=== PATIENT | female | born 1955 | race Caucasian/White ===

== ENCOUNTER 2019-12-27 23:57 | Inpatient (IN) | payer MEDICAID, OTHER ==
[~2019-12-27] VITALS: Ht 165.1 cm; Wt 97.8 kg
[2019-12-28 01:07] LABS: Basophils # (auto) 0 10 ^3/uL (0-0.2); Basophils % (auto) 0.4 % (0.0-2.0); Eosinophils # (auto) 0.2 10 ^3/uL (0-0.8); Eosinophils % (auto) 3.5 % (0.0-7.0); Hematocrit 43.4 % (36.0-46.0); Hemoglobin 14.9 g/dL (12.2-16.2); Lymphocytes # (auto) 0.7 10 ^3/uL (0.4-5.4); Lymphocytes % (auto) 11.8 % (10.0-50.0); Mean Corpuscular Hemoglobin 33.1 pg (28.0-32.0); Mean Corpuscular Hgb Conc. 34.3 g/dL (32.0-36.0); Mean Corpuscular Volume 96.4 fL (80.0-100.0); Monocytes # (auto) 0.8 10 ^3/uL (0-1.3); Monocytes % (auto) 12.5 % (0.0-12.0); Neutrophils # (auto) 4.5 10 ^3/uL (1.6-8.6); Neutrophils % (auto) 71.8 % (37.0-80.0); Nucleated Red Blood Cells % 0.2 %; Platelet Count (auto) 149 10^3/uL (140-450); Red Blood Cells 4.51 10^6/uL (4.0-5.20); Red Cell Distribution Width 13.1 % (11.8-14.3); White Blood Cell 6.3 10^3/uL (4.4-10.8)
[2019-12-28] MEDS ORDERED: IPRATROPIUM BROM 0.5 MG/2.5ML INH SOL HHN ONE (01:15)
[2019-12-28] MEDS ORDERED: ALBUTEROL SULF 2.5 MG/0.5ML(0.5%) NEB SOLN HHN ONE (01:15)
[2019-12-28] MEDS ORDERED: methylPREDNISolone SOD SUCC 125 MG/2 ML VL IV ONE (01:15)
[2019-12-28 01:21] LABS: INR 1.01 (0.9-1.15); Partial Thromboplastin Time 28.7 sec (23.64-32.05)
[2019-12-28 01:25] LABS: Alanine Aminotransferase 31 U/L (13-56); Albumin 3.7 g/dL (3.4-5.0); Anion Gap 4 (5-15); Aspartate Aminotransferase 16 U/L (15-37); BUN/Creatinine Ratio 32.9; Blood Urea Nitrogen 28 mg/dL (7-18); Calcium 8.6 mg/dL (8.5-10.1); Carbon Dioxide 30 mmol/L (21-32); Chloride 105 mmol/L (98-107); GFR African American 87 mL/min; GFR Non-African American 72 mL/min; Glucose 121 mg/dL (74-106); Magnesium 2.2 mg/dL (1.6-2.6); Potassium 4.2 mmol/L (3.5-5.1); Sodium 139 mmol/L (136-145)
[2019-12-28 01:30] LABS: Alkaline Phosphatase 65 U/L (45-117); Bilirubin, Total 0.4 mg/dL (0.2-1.0); Total Protein 7.2 g/dL (6.4-8.2)
[2019-12-28] MEDS ORDERED: DEXTROSE (50%) 50ML SYRG IV PRN (04:15)
[2019-12-28] MEDS ORDERED: ACETAMINOPHEN 325 MG TAB PO PRN (04:45)
[2019-12-28] MEDS ORDERED: DOCUSATE SOD 100 MG CAP PO PRN (04:45)
[2019-12-28] MEDS: IPRATROPIUM BROM 0.5 MG/2.5ML INH SOL NEB SCH ×5 (05:27→21:40)
[2019-12-28] MEDS: ALBUTEROL SULF 2.5 MG/0.5ML(0.5%) NEB SOLN NEB SCH ×5 (05:27→21:40)
--- NOTE | 2019-12-28 05:27 | NUR ---
Respiratory note: PRN BREATHING TX GIVEN AT THIS TIME. PT IS CURRENTLY WEARING 3 L NASAL CANNULA. HR 73, RR 17, SP02 96% AND BREATH SOUNDS ARE CLEAR AND DIMINISHED. PT IS AWARE TO HAVE RT PAGED IF BREATHING TX IS NEEDED. WILL CONTINUE TO MONITOR PT.
[2019-12-28 05:51] LABS: Urine Bacteria FEW /hpf (None Seen); Urine Blood Negative /uL (Negative); Urine Hyaline Cast FEW /lpf (0 - 2); Urine Specific Gravity 1.025 (1.001-1.035)
[2019-12-28 05:54] LABS: Urine WBC 5 /hpf (0 - 5)
[2019-12-28 06:18] VITALS: BP 116/60
[2019-12-28 07:11] LABS: Basophils # (auto) 0 10 ^3/uL (0-0.2); Basophils % (auto) 0.2 % (0.0-2.0); Eosinophils # (auto) 0 10 ^3/uL (0-0.8); Eosinophils % (auto) 0.2 % (0.0-7.0); Hematocrit 43.9 % (36.0-46.0); Hemoglobin 14.9 g/dL (12.2-16.2); Lymphocytes # (auto) 0.3 10 ^3/uL (0.4-5.4); Lymphocytes % (auto) 5.8 % (10.0-50.0); Mean Corpuscular Hemoglobin 32.7 pg (28.0-32.0); Mean Corpuscular Hgb Conc. 33.9 g/dL (32.0-36.0); Mean Corpuscular Volume 96.3 fL (80.0-100.0); Monocytes # (auto) 0.2 10 ^3/uL (0-1.3); Monocytes % (auto) 2.6 % (0.0-12.0); Neutrophils # (auto) 5.2 10 ^3/uL (1.6-8.6); Neutrophils % (auto) 91.2 % (37.0-80.0); Platelet Count (auto) 144 10^3/uL (140-450); Red Blood Cells 4.55 10^6/uL (4.0-5.20); Red Cell Distribution Width 13.1 % (11.8-14.3); White Blood Cell 5.7 10^3/uL (4.4-10.8)
[2019-12-28 07:29] LABS: BUN/Creatinine Ratio 33.3; Calcium 8.8 mg/dL (8.5-10.1); Potassium 4.3 mmol/L (3.5-5.1)
[2019-12-28] MEDS: ACCU-CHEK COMFORT CURVE STRIP VI SCH ×5 (08:00→23:49)
[2019-12-28] MEDS: InsuLIN REG 1unit/0.01ml Soln (100units/ml) SC SCH ×5 (08:23→23:50)
--- NOTE | 2019-12-28 09:12 | NUR ---
MS admit from ER RYANNE CHAVEZ admitted to tele/MS after SBAR received. Patient oriented to Gerda parsons RN, unit, room, bed, and unit policies regarding patient care and visiting hours. Patient weighed by bedscale and encouraged to call if they need something. All questions and concerns addressed, patient verbalized understanding.
[2019-12-28] MEDS: cefTRIAXone 1GM/50ML D5W 50 ML IV SCH (09:55)
[2019-12-28] MEDS: CLOPIDOGREL BISULFATE 75 MG TAB PO SCH (09:55)
[2019-12-28] MEDS: AZITHROMYCIN 500MG/ 250ML 250 ML IV SCH (09:55)
[2019-12-28] MEDS: METOPROLOL TARTRATE 25 MG TAB PO SCH ×2 (09:56→22:20)
[2019-12-28] MEDS: ATORVASTATIN 20 MG TAB PO SCH (09:56)
[2019-12-28] MEDS: FUROSEMIDE 40 MG TAB PO SCH (09:56)
[2019-12-28] MEDS: methylPREDNISolone SOD SUCC 125 MG/2 ML VL IV SCH (09:56)
[2019-12-28] MEDS: ASPirin 81 mg TAB PO SCH (09:56)
--- NOTE | 2019-12-28 10:10 | NUR ---
AT BEDSIDE DR YANG AT BEDSIDE UPDATING PATIENT ON POC. PATIENT VERBALIZED UNDERSTANDING.
[2019-12-28] MEDS: HYDROcodone-ACET 5/325MG TAB PO PRN ×3 (11:07→21:10)
[2019-12-28 12:07] VITALS: BP 159/85
[2019-12-28] MEDS ORDERED: BENA20TA14 PO (12:37)
[2019-12-28] MEDS ORDERED: CARV25TA PO (12:37)
[2019-12-28] MEDS ORDERED: DOCU-94 PO (12:37)
[2019-12-28] MEDS ORDERED: FURO1TAB31 PO (12:37)
[2019-12-28] MEDS ORDERED: ALBU108A5 IN (12:37)
[2019-12-28] MEDS ORDERED: POTA10TA51 PO (12:37)
[2019-12-28] MEDS ORDERED: FLUT1INH6 IN (12:37)
[2019-12-28] MEDS ORDERED: HYDR-4833 PO (12:37)
[2019-12-28 13:00] VITALS: BP 124/73
[2019-12-28 16:55] VITALS: BP 147/77
--- NOTE | 2019-12-28 19:20 | NUR ---
Opening Shift Note Assumed care of patient, awake, alert and oriented x4, even and unlabored respirations, no S/S of distress/SOB or pain. Patient on oxygen 3L via NC, patient able to turn independently. Bed in lowest locked position, side rails up x2, and call light within reach. Instructed on POC and to call for assist PRN, will continue to monitor for changes Q1hr and PRN.
[2019-12-28 22:00] VITALS: BP 145/77
[2019-12-29] MEDS ORDERED: TEMAZEPAM 15 MG CAP PO ONE (00:45)
[2019-12-29] MEDS: MORPHINE SULFATE 4 MG/ML SYR/VIAL IV PRN ×3 (00:51→22:23)
[2019-12-29] MEDS: ONDANSETRON HCL 4 MG/2 ML VIAL IV PRN ×3 (00:52→22:23)
[2019-12-29] MEDS: IPRATROPIUM BROM 0.5 MG/2.5ML INH SOL NEB SCH ×5 (02:17→22:57)
[2019-12-29] MEDS: ALBUTEROL SULF 2.5 MG/0.5ML(0.5%) NEB SOLN NEB SCH ×5 (02:17→22:57)
[2019-12-29] MEDS: InsuLIN REG 1unit/0.01ml Soln (100units/ml) SC SCH ×6 (04:25→23:32)
[2019-12-29] MEDS: ACCU-CHEK COMFORT CURVE STRIP VI SCH ×6 (04:51→23:31)
[2019-12-29 05:00] VITALS: BP 129/73
[2019-12-29 05:42] LABS: Basophils # (auto) 0 10 ^3/uL (0-0.2); Basophils % (auto) 0.1 % (0.0-2.0); Eosinophils # (auto) 0 10 ^3/uL (0-0.8); Hematocrit 42.1 % (36.0-46.0); Hemoglobin 14.4 g/dL (12.2-16.2); Lymphocytes # (auto) 0.5 10 ^3/uL (0.4-5.4); Lymphocytes % (auto) 5.1 % (10.0-50.0); Mean Corpuscular Hemoglobin 32.6 pg (28.0-32.0); Mean Corpuscular Hgb Conc. 34.3 g/dL (32.0-36.0); Mean Corpuscular Volume 95.1 fL (80.0-100.0); Monocytes # (auto) 1.1 10 ^3/uL (0-1.3); Monocytes % (auto) 10.8 % (0.0-12.0); Neutrophils # (auto) 8.8 10 ^3/uL (1.6-8.6); Nucleated Red Blood Cells % 0.1 %; Platelet Count (auto) 164 10^3/uL (140-450); Red Blood Cells 4.43 10^6/uL (4.0-5.20); Red Cell Distribution Width 12.8 % (11.8-14.3); White Blood Cell 10.5 10^3/uL (4.4-10.8)
[2019-12-29 06:00] LABS: Potassium 4.4 mmol/L (3.5-5.1)
[2019-12-29 06:06] LABS: Albumin 3.6 g/dL (3.4-5.0); BUN/Creatinine Ratio 27.8; Bilirubin, Total 0.3 mg/dL (0.2-1.0); Calcium 8.9 mg/dL (8.5-10.1); Total Protein 6.9 g/dL (6.4-8.2)
--- NOTE | 2019-12-29 08:00 | NUR ---
OPENING SHIFT NOTE ASSUMED CARE OF PATIENT AWAKE AND ALERT. NO S/S OF DISTRESS NOTED OR COMPLAINTS OF PAIN. PATIENT UPDATED ON POC FOR THE DAY AND ALL QUESTIONS ANSWERED. BED IS IN LOWEST, LOCKED POSITION WITH SIDE RAILS UP X2 AND CALL LIGHT WITHIN REACH. WILL CONTINUE TO MONITOR Q1H AND PRN.
[2019-12-29 09:00] VITALS: BP 137/83
[2019-12-29] MEDS: methylPREDNISolone SOD SUCC 125 MG/2 ML VL IV SCH (09:29)
[2019-12-29] MEDS: cefTRIAXone 1GM/50ML D5W 50 ML IV SCH (09:29)
[2019-12-29] MEDS: AZITHROMYCIN 500MG/ 250ML 250 ML IV SCH (09:29)
[2019-12-29] MEDS: FUROSEMIDE 40 MG TAB PO SCH (09:30)
[2019-12-29] MEDS: ASPirin 81 mg TAB PO SCH (09:30)
[2019-12-29] MEDS: HYDROcodone-ACET 5/325MG TAB PO PRN ×3 (09:30→18:23)
[2019-12-29] MEDS: ATORVASTATIN 20 MG TAB PO SCH (09:30)
[2019-12-29] MEDS: CLOPIDOGREL BISULFATE 75 MG TAB PO SCH (09:30)
[2019-12-29] MEDS: METOPROLOL TARTRATE 25 MG TAB PO SCH ×2 (09:30→21:49)
--- NOTE | 2019-12-29 10:00 | NUR ---
AT BEDSIDE DR YANG AT BEDSIDE UPDATING PATIENT ON POC. PATIENT VERBALIZED UNDERSTANDING.
[2019-12-29] MEDS ORDERED: methylPREDNISolone SOD SUCC 40 MG/ML VL IV ONE (10:15)
[2019-12-29 12:52] VITALS: BP 126/67
[2019-12-29] MEDS: THROAT LOZENGES(CEPASTAT) MT PRN ×2 (13:55→21:49)
[2019-12-29 16:56] VITALS: BP 131/71
[2019-12-29 22:00] VITALS: BP 132/70
[2019-12-30] MEDS: MORPHINE SULFATE 4 MG/ML SYR/VIAL IV PRN ×2 (02:04→09:59)
[2019-12-30] MEDS: ACCU-CHEK COMFORT CURVE STRIP VI SCH ×6 (03:35→23:51)
[2019-12-30] MEDS: InsuLIN REG 1unit/0.01ml Soln (100units/ml) SC SCH ×6 (03:35→23:51)
[2019-12-30] MEDS: HYDROcodone-ACET 5/325MG TAB PO PRN ×4 (06:01→23:40)
--- NOTE | 2019-12-30 06:05 | NUR ---
rt paged for breathing treatment
[2019-12-30] MEDS: IPRATROPIUM BROM 0.5 MG/2.5ML INH SOL NEB SCH ×6 (06:34→20:30)
[2019-12-30] MEDS: ALBUTEROL SULF 2.5 MG/0.5ML(0.5%) NEB SOLN NEB SCH ×6 (06:34→20:30)
--- NOTE | 2019-12-30 07:47 | NUR ---
RECEIVED PATIENT ALERT AND ORIENTED X4, NOT IN DISTRESS, WHEEZING SOUNDS IN BILATERAL LUNG LOBES, RR=20, DEEP BREATHING AND COUGHING ENCOURAGED, DEMONSTRATED WELL, NORMAL HEART BEAT AND RHYTHM, R=88, DENIED CHEST PAIN AND SOB, ABDOMEN SOFT WITH ACTIVE BS, LAST BM=12/26/19 REPORTED, SKIN INTACT WARM TO TOUCH, RADIAL AND PEDAL PULSES PALPABLE, CAP REFILL <3 SECONDS, RESTING ON BED, HEAD OF BED ELEVATED, BED ON LOW POSITION, RAILS UP X2, CALL LIGHT ON REACH, WILL CONTINUE MONITORING.
[2019-12-30 09:00] VITALS: BP 132/70
[2019-12-30] MEDS: cefTRIAXone 1GM/50ML D5W 50 ML IV SCH (09:54)
[2019-12-30] MEDS: methylPREDNISolone SOD SUCC 40 MG/ML VL IV SCH (09:55)
[2019-12-30] MEDS: AZITHROMYCIN 500MG/ 250ML 250 ML IV SCH (09:55)
[2019-12-30] MEDS: ASPirin 81 mg TAB PO SCH (09:56)
[2019-12-30] MEDS: FUROSEMIDE 40 MG TAB PO SCH (09:57)
[2019-12-30] MEDS: METOPROLOL TARTRATE 25 MG TAB PO SCH ×2 (09:58→23:37)
[2019-12-30] MEDS: CLOPIDOGREL BISULFATE 75 MG TAB PO SCH (09:58)
[2019-12-30] MEDS: ATORVASTATIN 20 MG TAB PO SCH (09:58)
[2019-12-30] MEDS: ONDANSETRON HCL 4 MG/2 ML VIAL IV PRN (09:59)
[2019-12-30] MEDS ORDERED: diphenhdrAMINE HCL 25 MG CAP PO PRN (10:15)
[2019-12-30] MEDS ORDERED: LACTULOSE 20Gm/30ML SOLN PO ONE (10:45)
[2019-12-30 13:00] VITALS: BP 116/70
--- NOTE | 2019-12-30 13:00 | NUR ---
C/O CONSTIPATION, DR. YANG WAS NOTIFIED, WATER ENEMA AND LACTULOSE PO WAS ORDERED, REFUSED ENEMA, LACTULOSE PO WAS ADMINISTERED REQUESTED, ENCOURAGED TO AMBULATE AROUND THE UNIT, VERBALIZED UNDERSTANDING, RESTING ON BED AT THIS MOMENT.
[2019-12-30 17:00] VITALS: BP 124/69
--- NOTE | 2019-12-30 18:38 | NUR ---
AMBULATED AROUND THE UNIT X4, TOLERATED WELL, NO BM NOTED, SITTING AND EATING DINNER AT THIS MOMENT, WILL CONTINUE MONITORING.
--- NOTE | 2019-12-30 18:59 | NUR ---
Respiratory note: PT REFUSED SCHED MED NEB TX AT THIS TIME. PT SAYS SHE JUST ATE AND THAT THE MED NEB TX GIVES HER STOMACH ACHES. PT IS CURRENTLY ON 3 L/M NC: HR 75, RR 18, SPO2 92%. PT SHOWS NO S/S OF SOB OR RESPIRATORY DISTRESS. WILL CONTINUE TO MONITOR.
--- NOTE | 2019-12-30 19:10 | NUR ---
Patient refused water enema and states that she had 2 small bowel movements and wants to wait for a few hours. Patient states that she will just let me know when she is ready. Addendum: 12/31/19 at 0559 by PATTIE STAUFFER RN RN time is 0430
--- NOTE | 2019-12-30 19:24 | NUR ---
RESTING ON BED, NOT IN DISTRESS, HEAD OF BED ELEVATED, BED ON LOW POSITION, RAILS UP X2, CALL LIGHT ON REACH, REPORT WAS GIVEN TO THE CISCO ADMINISTRATOR RN.
--- NOTE | 2019-12-30 19:30 | NUR ---
Opening Shift Note Received report from isai Drummond RN. Assumed care of patient, awake and alert. No S/S of distress/SOB or pain. Instructed on POC and to call for assist PRN, will continue to monitor for changes Q1hr and PRN. Bed placed in lowest position, and call light within reach.
[2019-12-30 22:00] VITALS: BP 120/71
--- NOTE | 2019-12-31 00:30 | NUR ---
IV removal IV to left forearm infiltrated. DC'd with sterile technique, catheter fully intact. Pressure dressing applied to site. Patient tolerated procedure well.
--- NOTE | 2019-12-31 00:30 | NUR ---
IV insertion IV access obtained, via clean sterile technique by inserting 22 gauge catheter at left forearm after first attempt. IV secured properly. No trauma to site. Patient tolerated procedure well.
[2019-12-31] MEDS: ALBUTEROL SULF 2.5 MG/0.5ML(0.5%) NEB SOLN NEB SCH ×5 (02:42→18:02)
[2019-12-31] MEDS: IPRATROPIUM BROM 0.5 MG/2.5ML INH SOL NEB SCH ×5 (02:42→18:02)
[2019-12-31] MEDS: InsuLIN REG 1unit/0.01ml Soln (100units/ml) SC SCH ×5 (04:00→20:00)
[2019-12-31] MEDS: ACCU-CHEK COMFORT CURVE STRIP VI SCH ×4 (04:26→16:00)
[2019-12-31] MEDS: HYDROcodone-ACET 5/325MG TAB PO PRN ×5 (04:29→23:51)
[2019-12-31 05:00] VITALS: BP 131/79
[2019-12-31 06:07] LABS: Basophils # (auto) 0 10 ^3/uL (0-0.2); Basophils % (auto) 0.1 % (0.0-2.0); Eosinophils # (auto) 0 10 ^3/uL (0-0.8); Eosinophils % (auto) 0.5 % (0.0-7.0); Hematocrit 41.3 % (36.0-46.0); Lymphocytes # (auto) 1.5 10 ^3/uL (0.4-5.4); Lymphocytes % (auto) 20.4 % (10.0-50.0); Mean Corpuscular Hemoglobin 32.2 pg (28.0-32.0); Mean Corpuscular Hgb Conc. 33.9 g/dL (32.0-36.0); Mean Corpuscular Volume 95.1 fL (80.0-100.0); Monocytes # (auto) 0.9 10 ^3/uL (0-1.3); Monocytes % (auto) 12.8 % (0.0-12.0); Neutrophils # (auto) 4.8 10 ^3/uL (1.6-8.6); Neutrophils % (auto) 66.2 % (37.0-80.0); Nucleated Red Blood Cells % 0.1 %; Platelet Count (auto) 159 10^3/uL (140-450); Red Blood Cells 4.35 10^6/uL (4.0-5.20); White Blood Cell 7.3 10^3/uL (4.4-10.8)
[2019-12-31 06:13] LABS: Albumin 3.4 g/dL (3.4-5.0); Calcium 8.4 mg/dL (8.5-10.1); Potassium 3.6 mmol/L (3.5-5.1)
[2019-12-31 06:38] LABS: Bilirubin, Total 0.3 mg/dL (0.2-1.0); Total Protein 6.4 g/dL (6.4-8.2)
--- NOTE | 2019-12-31 08:00 | NUR ---
RECEIVED PATIENT ALERT AND ORIENTED X4, NOT IN DISTRESS, WHEEZING SOUNDS IN BILATERAL LUNG LOBES, RR=18, DEEP BREATHING AND COUGHING ENCOURAGED, DEMONSTRATED WELL, NORMAL HEART BEAT AND RHYTHM, R=88, DENIED CHEST PAIN AND SOB, ABDOMEN SOFT WITH ACTIVE BS, LAST BM=THIS MORNING REPORTED, SKIN INTACT WARM TO TOUCH, RADIAL AND PEDAL PULSES PALPABLE, CAP REFILL <3 SECONDS, RESTING ON BED, HEAD OF BED ELEVATED, BED ON LOW POSITION, RAILS UP X2, CALL LIGHT ON REACH, WILL CONTINUE MONITORING.
[2019-12-31] MEDS: MORPHINE SULFATE 4 MG/ML SYR/VIAL IV PRN (08:35)
[2019-12-31] MEDS: ONDANSETRON HCL 4 MG/2 ML VIAL IV PRN (08:35)
[2019-12-31 09:00] VITALS: BP 113/62
[2019-12-31] MEDS: cefTRIAXone 1GM/50ML D5W 50 ML IV SCH (10:48)
[2019-12-31] MEDS: ASPirin 81 mg TAB PO SCH (10:49)
[2019-12-31] MEDS: methylPREDNISolone SOD SUCC 40 MG/ML VL IV SCH (10:49)
[2019-12-31] MEDS: AZITHROMYCIN 500MG/ 250ML 250 ML IV SCH (10:49)
[2019-12-31] MEDS: ATORVASTATIN 20 MG TAB PO SCH (10:50)
[2019-12-31] MEDS: FUROSEMIDE 40 MG TAB PO SCH (10:50)
[2019-12-31] MEDS: METOPROLOL TARTRATE 25 MG TAB PO SCH ×2 (10:51→16:00)
[2019-12-31] MEDS: CLOPIDOGREL BISULFATE 75 MG TAB PO SCH (10:51)
--- NOTE | 2019-12-31 11:00 | NUR ---
OUT OF BED AMBULATED AROUND THE UNIT AND BACK TO THE ROOM, D/C INFILTRATED LT. ARM IV SITE, INSERTED NEW SITE G 20 ON LT. LOWER ARM, TOLERATED WELL, WILL CONTINUE MONITORING.
--- NOTE | 2019-12-31 11:29 | NUR ---
NUTRITION ASSESSMENT NOTES Please refer to link notes of nutrition screen form filed under the intervention section of the plan of care for further details. Est. Energy Needs: 4451-4568 kcal (14-18 kcal/kg BW). Est. Protein Needs: 54-67 gms/day (0.8-1.0 gms/kg Adj.BW). Will continue to monitor pertinent labs and reassess nutrient need prn Addendum: 12/31/19 at [address] Amended: Links added.
--- NOTE | 2019-12-31 12:29 | NUR ---
RT NOTE: THERAPIST WAS UNAVAILABLE TO GIVE 1000 TX DUE TO BEING STUCK IN ICU WITH MULTIPLE CRITICAL PTS WITH MD ORDERS TO BE CARRIED OUT. WILL ATTEMPT TO MAKE IT TO NEXT SCHEDULED TX.
[2019-12-31 13:00] VITALS: BP_SYST 129; BP_SYST 92; BP_DIAS 48; BP_DIAS 72
[2019-12-31 17:12] VITALS: BP 137/86
--- NOTE | 2019-12-31 19:19 | NUR ---
RESTING ON BED, NOT IN DISTRESS, HEAD OF BED ELEVATED, BED ON LOW POSITION, RAILS UP X2, CALL LIGHT ON REACH, REPORT WAS GIVEN TO THE PARCEL POST CLERK RN.
[2019-12-31 22:00] VITALS: BP_SYST 106; BP_SYST 143; BP_DIAS 60; BP_DIAS 81
[2019-12-31 23:24] VITALS: BP 143/81
--- NOTE | 2020-01-01 00:15 | NUR ---
PT REQUESTING TO BE SUCTIONED D/T UNABLE TO CLEAR THICK MUCUS FROM NASAL PASSAGES. NTS PERFORMED, PT TOLERATED WELL. SAFETY PRECAUTIONS IN PLACE. WILL CONTINUE TO MONITOR.
[2020-01-01] MEDS: ALBUTEROL SULF 2.5 MG/0.5ML(0.5%) NEB SOLN NEB SCH ×6 (00:44→22:40)
[2020-01-01] MEDS: IPRATROPIUM BROM 0.5 MG/2.5ML INH SOL NEB SCH ×6 (00:45→22:40)
[2020-01-01 01:49] VITALS: BP 133/82
[2020-01-01] MEDS: ONDANSETRON HCL 4 MG/2 ML VIAL IV PRN ×4 (02:52→20:04)
[2020-01-01] MEDS: MORPHINE SULFATE 4 MG/ML SYR/VIAL IV PRN ×4 (02:52→20:04)
[2020-01-01] MEDS: ACCU-CHEK COMFORT CURVE STRIP VI SCH ×7 (03:01→20:04)
--- NOTE | 2020-01-01 03:47 | NUR ---
PT REFUSED VITAL SIGNS, PT YELLING AT DE ALCOHOLIZER, RYANNE, TELLING HER TO GET OUT OF THE ROOM AND TO LEAVE HER ALONE.
[2020-01-01] MEDS: InsuLIN REG 1unit/0.01ml Soln (100units/ml) SC SCH ×6 (04:00→20:00)
--- NOTE | 2020-01-01 07:00 | NUR ---
LT AC IV INFILTRATED, NEW IV ON LT FA 22G PLACED, PT TOLERATED WELL, IV INTACT AND PATENT. SAFETY PRECAUTIONS IN PLACE. WILL CONTINUE TO MONITOR.
[2020-01-01 09:00] VITALS: BP 130/66
[2020-01-01 10:03] LABS: Basophils # (auto) 0 10 ^3/uL (0-0.2); Basophils % (auto) 0.1 % (0.0-2.0); Eosinophils # (auto) 0.1 10 ^3/uL (0-0.8); Eosinophils % (auto) 1.3 % (0.0-7.0); Hemoglobin 14.4 g/dL (12.2-16.2); Lymphocytes % (auto) 25.4 % (10.0-50.0); Mean Corpuscular Hemoglobin 32.2 pg (28.0-32.0); Mean Corpuscular Hgb Conc. 34.2 g/dL (32.0-36.0); Mean Corpuscular Volume 94.3 fL (80.0-100.0); Monocytes # (auto) 0.9 10 ^3/uL (0-1.3); Neutrophils # (auto) 4.8 10 ^3/uL (1.6-8.6); Neutrophils % (auto) 61.2 % (37.0-80.0); Nucleated Red Blood Cells % 0.1 %; Platelet Count (auto) 181 10^3/uL (140-450); Red Blood Cells 4.45 10^6/uL (4.0-5.20); Red Cell Distribution Width 12.7 % (11.8-14.3); White Blood Cell 7.9 10^3/uL (4.4-10.8)
[2020-01-01 10:22] LABS: BUN/Creatinine Ratio 27.3; Calcium 8.6 mg/dL (8.5-10.1); Potassium 3.7 mmol/L (3.5-5.1)
[2020-01-01] MEDS: cefTRIAXone 1GM/50ML D5W 50 ML IV SCH (10:30)
[2020-01-01] MEDS: FUROSEMIDE 40 MG TAB PO SCH (10:31)
[2020-01-01] MEDS: methylPREDNISolone SOD SUCC 40 MG/ML VL IV SCH (10:31)
[2020-01-01] MEDS: ATORVASTATIN 20 MG TAB PO SCH (10:31)
[2020-01-01] MEDS: ASPirin 81 mg TAB PO SCH (10:31)
[2020-01-01] MEDS: METOPROLOL TARTRATE 25 MG TAB PO SCH ×2 (10:31→22:05)
[2020-01-01] MEDS: CLOPIDOGREL BISULFATE 75 MG TAB PO SCH (10:32)
[2020-01-01] MEDS: AZITHROMYCIN 500MG/ 250ML 250 ML IV SCH (11:28)
[2020-01-01 12:54] VITALS: BP 105/85
[2020-01-01] MEDS: HYDROcodone-ACET 5/325MG TAB PO PRN (15:59)
[2020-01-01 16:34] VITALS: BP 112/72
--- NOTE | 2020-01-01 17:55 | NUR ---
PAGED DR YANG TO NOTIFY OF PATIENTS OZ SAT 86% ON RA
--- NOTE | 2020-01-01 18:20 | NUR ---
RECVEIVED A CALL BACK FROM DR YANG , DISCHARGE TO BE HELD SOCIAL SERVICE CONSULT FOR 2 L NASAL CANULA HOME 02 AND ABG TO BE DRAWN ORDERS PLACED.
--- NOTE | 2020-01-01 19:31 | NUR ---
Opening Shift Note Assumed care of patient, awake and alert x 4. No S/S of distress/SOB. Bed is in lowest position and locked. Call light within reach. Board updated. Instructed on POC and to call for assist PRN, will continue to monitor for changes Q1hr and PRN.
[2020-01-01 22:00] VITALS: BP 114/66
--- NOTE | 2020-01-01 22:14 | NUR ---
Patient refused 2 units of regular insulin for blood glucose of 144 mg/dl. Patient states she just ate and is afraid her blood sugar will drop before midnight. Will continue to assess.
[2020-01-02] MEDS: ACCU-CHEK COMFORT CURVE STRIP VI SCH ×6 (00:12→20:00)
[2020-01-02] MEDS: ONDANSETRON HCL 4 MG/2 ML VIAL IV PRN ×6 (00:13→21:11)
[2020-01-02] MEDS: MORPHINE SULFATE 4 MG/ML SYR/VIAL IV PRN ×6 (00:13→21:12)
[2020-01-02] MEDS: ALBUTEROL SULF 2.5 MG/0.5ML(0.5%) NEB SOLN NEB SCH ×4 (02:24→22:02)
[2020-01-02] MEDS: IPRATROPIUM BROM 0.5 MG/2.5ML INH SOL NEB SCH ×4 (02:25→22:02)
[2020-01-02] MEDS: InsuLIN REG 1unit/0.01ml Soln (100units/ml) SC SCH ×6 (04:40→20:00)
[2020-01-02 05:00] VITALS: BP 147/88
--- NOTE | 2020-01-02 07:30 | NUR ---
Opening Shift Note Assumed care of patient, awake and alert. No S/S of distress/SOB or pain on 2 LPM via nasal cannula. Instructed on POC and to call for assist PRN, will continue to monitor for changes Q1hr and PRN. Bed in low and locked position, rails up x2, no-slip socks on, bedside table within reach.
[2020-01-02 09:00] VITALS: BP 118/69
--- NOTE | 2020-01-02 09:00 | NUR ---
PAGE TO DRIVER LICENSE AGENT NIGHT AUDITOR AWAITING CALL BACK
--- NOTE | 2020-01-02 09:30 | NUR ---
DR YANG AT BEDSIDE ARRANGE FOR HOME O2 FOR DISCHARGE
[2020-01-02] MEDS: AZITHROMYCIN 500MG/ 250ML 250 ML IV SCH (10:28)
[2020-01-02] MEDS: cefTRIAXone 1GM/50ML D5W 50 ML IV SCH (10:28)
[2020-01-02] MEDS: methylPREDNISolone SOD SUCC 40 MG/ML VL IV SCH (10:28)
[2020-01-02] MEDS: METOPROLOL TARTRATE 25 MG TAB PO SCH ×2 (10:29→21:26)
[2020-01-02] MEDS: ATORVASTATIN 20 MG TAB PO SCH (10:29)
[2020-01-02] MEDS: ASPirin 81 mg TAB PO SCH (10:29)
[2020-01-02] MEDS: CLOPIDOGREL BISULFATE 75 MG TAB PO SCH (10:29)
[2020-01-02] MEDS: FUROSEMIDE 40 MG TAB PO SCH (10:29)
--- NOTE | 2020-01-02 11:00 | NUR ---
PAGE TO HOME CARE PHYSICAL THERAPIST GARMENT FITTER AWAITING CALL BACK
--- NOTE | 2020-01-02 11:11 | NUR ---
GENERAL ROAD SUPERVISOR CALL BACK WILL ARRANGE FOR HOME O2, ANSWERED ALL QUESTIONS REGARDING INSURANCE AND ABG RESULTS. WILL CALL BACK WITH UPDATE.
--- NOTE | 2020-01-02 11:47 | NUR ---
CALL FROM RATE SETTER VERENE CALL BACK, [facility] IS NOT ANSWERING, NOT ABLE TO LEAVE VOICEMAIL, WILL CALL BACK WITH AN UPDATE IF ANYTHING CHANGES.
[2020-01-02 12:06] VITALS: BP 118/69
[2020-01-02 13:00] VITALS: BP_SYST 101; BP_SYST 97; BP_DIAS 52; BP_DIAS 59
--- NOTE | 2020-01-02 14:00 | NUR ---
FAX INFORMATION FAXED H&P, FACE SHEET, AND OXYGEN ORDER TO [facility] AT [phone] PHONE [phone] AUTH NUMBER [id number] [employer] INSURANCE AT [phone], AWAITING RESPONSE, WILL FOLLOW UP IN ONE HOUR
--- NOTE | 2020-01-02 15:17 | NUR ---
CALL TO TRIMMING MACHINE OPERATOR DROP CREW LABORER PER HAILY, [facility] IS NOT CONTRACTED WITH HOME CARE, SO THEY WILL BE UNABLE TO PROVIDE OXYGEN SERVICES. WILL AWAIT CALL BACK FROM [facility] TO SEE IF [facility] CAN BE CONTACTED, IF NOT, WILL NOTIFY PATIENT THAT SHE MAY NOT RECEIVE OXYGEN THIS WEEKEND AND MAY NEED TO HOLD DISCHARGE UNTIL IT IS DELIVERED.
[2020-01-02 16:33] VITALS: BP 123/70
--- NOTE | 2020-01-02 20:00 | NUR ---
Patient refused to have blood sugar check at this time.
[2020-01-02 22:00] VITALS: BP 138/86
[2020-01-03] VITALS (7 sets, daily range): BP systolic 117–129; BP diastolic 68–74
[2020-01-03] MEDS: MORPHINE SULFATE 4 MG/ML SYR/VIAL IV PRN ×2 (02:27→06:55)
--- NOTE | 2020-01-03 02:27 | NUR ---
Patient is complaining of pain to knees and joints of 8/10. Morphine given. Will monitor.
[2020-01-03] MEDS: ONDANSETRON HCL 4 MG/2 ML VIAL IV PRN ×2 (02:28→06:55)
[2020-01-03] MEDS: InsuLIN REG 1unit/0.01ml Soln (100units/ml) SC SCH ×6 (04:00→20:00)
[2020-01-03] MEDS: ACCU-CHEK COMFORT CURVE STRIP VI SCH ×6 (04:00→20:00)
--- NOTE | 2020-01-03 04:00 | NUR ---
Patient refused blood sugar check at this time. Patient is resting in bed with eyes closed, no distress noted.
[2020-01-03] MEDS: ALBUTEROL SULF 2.5 MG/0.5ML(0.5%) NEB SOLN NEB SCH ×5 (07:07→22:46)
[2020-01-03] MEDS: IPRATROPIUM BROM 0.5 MG/2.5ML INH SOL NEB SCH ×5 (07:07→22:46)
--- NOTE | 2020-01-03 07:30 | NUR ---
Opening Shift Note Assumed care of patient, awake and alert. No S/S of distress/SOB or pain. For safety, patients bed is locked, in the lowest position, with 2 side rails up and the call light with in reach. Instructed on POC and to call for assist PRN, will continue to monitor for any changes in condition.
[2020-01-03] MEDS: cefTRIAXone 1GM/50ML D5W 50 ML IV SCH (10:45)
[2020-01-03] MEDS: FUROSEMIDE 40 MG TAB PO SCH (10:46)
[2020-01-03] MEDS: METOPROLOL TARTRATE 25 MG TAB PO SCH ×2 (10:47→22:57)
[2020-01-03] MEDS: CLOPIDOGREL BISULFATE 75 MG TAB PO SCH (10:47)
[2020-01-03] MEDS: methylPREDNISolone SOD SUCC 40 MG/ML VL IV SCH (10:48)
[2020-01-03] MEDS: ASPirin 81 mg TAB PO SCH (10:48)
[2020-01-03] MEDS: ATORVASTATIN 20 MG TAB PO SCH (10:50)
[2020-01-03] MEDS: AZITHROMYCIN 500MG/ 250ML 250 ML IV SCH (13:18)
[2020-01-03] MEDS: HYDROcodone-ACET 5/325MG TAB PO PRN ×3 (13:21→22:58)
--- NOTE | 2020-01-03 15:03 | NUR ---
Respiratory note: BREATHING TX AT 1503 NOT GIVEN. NO THERAPIST AVAILABLE. PT TRIAGED. BREATH SOUNDS DIMINISHED. PT ON 3 LPM SP02 95%.
--- NOTE | 2020-01-03 19:10 | NUR ---
Opening Shift Note Received report from isai Wilhelm RN. Assumed care of patient, awake and alert. No S/S of distress/SOB or pain. Family at bedside. Instructed on POC and to call for assist PRN, will continue to monitor for changes Q1hr and PRN. Bed placed in lowest position, bed alarm turned on and call light within reach.
[2020-01-04] MEDS: InsuLIN REG 1unit/0.01ml Soln (100units/ml) SC SCH ×5 (00:38→15:35)
[2020-01-04] MEDS: ONDANSETRON HCL 4 MG/2 ML VIAL IV PRN (01:07)
[2020-01-04] MEDS: MORPHINE SULFATE 4 MG/ML SYR/VIAL IV PRN (01:08)
[2020-01-04] MEDS: IPRATROPIUM BROM 0.5 MG/2.5ML INH SOL NEB SCH ×4 (02:00→13:53)
[2020-01-04] MEDS: ALBUTEROL SULF 2.5 MG/0.5ML(0.5%) NEB SOLN NEB SCH ×4 (02:00→13:53)
--- NOTE | 2020-01-04 02:41 | NUR ---
PT STATED THAT SHE DID NOT WANT TO BE WOKEN UP FOR HER 0200 SCHEDULED TX. STATED IT'S HARD FOR HER TO GO BACK TO SLEEP ONCE WOKEN UP AND THAT SHE WOULD CALL IF SHE WOKE UP AND FELT SHE NEEDED IT.
[2020-01-04] MEDS: ACCU-CHEK COMFORT CURVE STRIP VI SCH ×5 (04:24→15:35)
[2020-01-04 06:00] VITALS: BP 120/70
[2020-01-04] MEDS: HYDROcodone-ACET 5/325MG TAB PO PRN ×3 (06:38→15:14)
--- NOTE | 2020-01-04 07:55 | NUR ---
Patient sitting up in bed, awake, oriented x4, on O2 at 3 LPM. No acute distress noted.
[2020-01-04 08:50] VITALS: BP 129/75
[2020-01-04] MEDS: AZITHROMYCIN 500MG/ 250ML 250 ML IV SCH (09:40)
[2020-01-04] MEDS: cefTRIAXone 1GM/50ML D5W 50 ML IV SCH (09:40)
[2020-01-04] MEDS: methylPREDNISolone SOD SUCC 40 MG/ML VL IV SCH (09:41)
[2020-01-04] MEDS: ASPirin 81 mg TAB PO SCH (09:42)
[2020-01-04] MEDS: FUROSEMIDE 40 MG TAB PO SCH (09:42)
[2020-01-04] MEDS: ATORVASTATIN 20 MG TAB PO SCH (09:43)
[2020-01-04] MEDS: CLOPIDOGREL BISULFATE 75 MG TAB PO SCH (09:43)
[2020-01-04] MEDS: METOPROLOL TARTRATE 25 MG TAB PO SCH (09:43)
--- NOTE | 2020-01-04 10:15 | NUR ---
Patient came out of the bathroom, walking back to bed. No untoward incident noted.
--- NOTE | 2020-01-04 10:25 | NUR ---
Paged Measurement Analyst Geraldine.
--- NOTE | 2020-01-04 10:30 | NUR ---
Frame Coverer Geraldine called back. Geraldine said Roxanne is working on patient's home O2, it may take a couple of hours.
--- NOTE | 2020-01-04 11:08 | NUR ---
Patient stated her pain level at 7/10 at this time. Patient refused Morphine Sulf Inj, requested a pain pill. [place] 5/325 PO given for pain.
--- NOTE | 2020-01-04 12:40 | NUR ---
Susy Carr. called back. made aware the Computer System Validation Specialist is working on the patient's portable O2 to be delivered at bedside. Dr. Ruvalcaba ordered to discharge the patient when the portable O2 for home is delivered at bedside.
[2020-01-04 12:46] VITALS: BP 123/74
--- NOTE | 2020-01-04 14:16 | NUR ---
Pt is an alert and oriented 64 yo female that resides with her daughter, Lilly. Lilly is pt's primary caregiver and provides pt with assistance as needed. Pt has a cane at home but no home oxygen. Pt will need home oxygen upon discharge and daughter will provide transport home. No other social service needs or concerns. Will continue to monitor and provide intervention as appropriate. Addendum: 01/04/20 at 1418 by PARVIN TRAN Amended: Links added.
--- NOTE | 2020-01-04 15:14 | NUR ---
[place] 5/325 PO given for pain as ordered.
--- NOTE | 2020-01-04 15:25 | NUR ---
D/C Planning Per SS consult for home oxygen at 2 l/min via nasal canula. Faxed medical records to [facility] and [facility]. Per Seb with [facility]:) portable oxygen will be deliver to patient between 14:00-17:30 and concentrate oxygen will be deliver to patient home.
--- NOTE | 2020-01-04 15:50 | NUR ---
Portable O2 delivered at bedside. Instructions given to patient how to use the portable O2 tank. Patient verbalized understanding. Patient to call her daughter to pick her up for discharge.
--- NOTE | 2020-01-04 16:20 | NUR ---
Patient waiting for her friend to pick her up. Patient stated she knows how to use her portable O2. Prescription and discharge papers given to the patient.
--- NOTE | 2020-01-04 17:00 | NUR ---
Discharge instructions given as ordered. Encourage to follow up with PMD as instructed. All questions and concerns addressed. Patient verbalized understanding. Medication reconciliation form completed and copy given to patient. IV removed with catheter intact, pressure dressing applied. Patient taken to vehicle via wheelchair with all personal belongings, accompanied by staff and friend. Patient on portable O2 at 3 LPM. No distress noted at time of departure.
--- NOTE | 2020-01-04 17:25 | NUR ---
Lei Carr called back. made aware patient already left, discharged home with portable O2.
== END 2020-01-04 17:00 | disposition home or self-care (01) | DRG 140 ==
LOC: EDBD 23:57 → ER 12-28 → OVERFLOW 12-28 00:01 → WEST WING 12-28 09:12
PROVIDERS: ADMIT Hospitalist; ATTEND Internal Medicine
DX: J44.1 Chronic obstructive pulmonary disease with (acute) exacerbation (principal); I11.0 Hypertensive heart disease with heart failure; I50.9 Heart failure, unspecified; I25.10 Atherosclerotic heart disease of native coronary artery without angina pectoris; R73.9 Hyperglycemia, unspecified; F17.210 Nicotine dependence, cigarettes, uncomplicated; R51 Headache; Z90.49 Acquired absence of other specified parts of digestive tract
CPT/HCPCS: 36415; 36600; 71045; 80048; 80053; 81001; 82805; 82962; 83735; 83880; 84484; 85025; 85610; 85730; 87040; 87804; 93005; 94640; 96374; G0378; J0696; J1815; J2405

== ENCOUNTER 2021-12-28 20:04 | Emergency (ER) | payer MEDICAID ==
[~2021-12-28] VITALS: Ht 170.2 cm; Wt 89.8 kg
[~2021-12-28 20:04] MED LIST: ALBU108A5 IN; BENA20TA14 PO; CARV25TA PO; DOCU-94 PO; FLUT1INH6 IN; FURO1TAB31 PO; HYDR-4833 PO; POTA10TA51 PO
[2021-12-28] MEDS ORDERED: methylPREDNISolone SOD SUCC 125 MG/2 ML VL IV ONE (20:45)
[2021-12-28 21:05] LABS: Basophils # (auto) 0 10 ^3/uL (0-0.2); Basophils % (auto) 0.2 % (0.0-2.0); Eosinophils # (auto) 0.1 10 ^3/uL (0-0.8); Eosinophils % (auto) 2.2 % (0.0-7.0); Hematocrit 37.4 % (36.0-46.0); Hemoglobin 12.9 g/dL (12.2-16.2); Lymphocytes # (auto) 0.3 10 ^3/uL (0.4-5.4); Lymphocytes % (auto) 6.2 % (10.0-50.0); Mean Corpuscular Hemoglobin 32.3 pg (28.0-32.0); Mean Corpuscular Hgb Conc. 34.5 g/dL (32.0-36.0); Mean Corpuscular Volume 93.5 fL (80.0-100.0); Monocytes # (auto) 0.6 10 ^3/uL (0-1.3); Monocytes % (auto) 10.6 % (0.0-12.0); Neutrophils # (auto) 4.4 10 ^3/uL (1.6-8.6); Neutrophils % (auto) 80.8 % (37.0-80.0); Red Cell Distribution Width 12.8 % (11.8-14.3); White Blood Cell 5.4 10^3/uL (4.4-10.8)
[2021-12-28 21:26] LABS: Calcium 8.7 mg/dL (8.5-10.1); Potassium 4.2 mmol/L (3.5-5.1)
[2021-12-28 21:34] LABS: Albumin 3.9 g/dL (3.4-5.0); BUN/Creatinine Ratio 19.6; Bilirubin, Total 0.4 mg/dL (0.2-1.0); Magnesium 2.6 mg/dL (1.6-2.6); Total Protein 7.4 g/dL (6.4-8.2)
[2021-12-28 21:48] LABS: INR 1.02 (0.9-1.15); Partial Thromboplastin Time 27.1 sec (23.6-33.0)
[2021-12-28] MEDS ORDERED: PRED20TA2 PO (22:31)
[2021-12-28 23:30] VITALS: BP 118/57
== END 2021-12-28 23:42 | disposition home or self-care (01) ==
LOC: ER 20:04 → EDBD 20:04 → ER 23:42
DX: J44.1 Chronic obstructive pulmonary disease with (acute) exacerbation (principal); I11.0 Hypertensive heart disease with heart failure; I50.9 Heart failure, unspecified; I25.10 Atherosclerotic heart disease of native coronary artery without angina pectoris; F17.210 Nicotine dependence, cigarettes, uncomplicated; Z90.49 Acquired absence of other specified parts of digestive tract; Z20.822 Contact with and (suspected) exposure to COVID-19
CPT/HCPCS: 36415; 71045; 80053; 83735; 83880; 84484; 85025; 85610; 85730; 87426; 93005; 96374; 99285; J2930

== ENCOUNTER 2021-12-31 06:17 | Inpatient (IN) | payer MEDICAID ==
[~2021-12-31] VITALS: Ht 165.1 cm; Wt 101.4 kg
[~2021-12-31 06:17] MED LIST changes: +PRED20TA2 PO
[2021-12-31 07:05] LABS: Basophils # (auto) 0.1 10 ^3/uL (0-0.2); Basophils % (auto) 0.7 % (0.0-2.0); Eosinophils # (auto) 0 10 ^3/uL (0-0.8); Eosinophils % (auto) 0.1 % (0.0-7.0); Hematocrit 36.3 % (36.0-46.0); Hemoglobin 12.4 g/dL (12.2-16.2); Lymphocytes # (auto) 0.4 10 ^3/uL (0.4-5.4); Lymphocytes % (auto) 4.8 % (10.0-50.0); Mean Corpuscular Hemoglobin 32.2 pg (28.0-32.0); Mean Corpuscular Hgb Conc. 34.2 g/dL (32.0-36.0); Mean Corpuscular Volume 94.1 fL (80.0-100.0); Monocytes # (auto) 0.7 10 ^3/uL (0-1.3); Monocytes % (auto) 7.1 % (0.0-12.0); Neutrophils # (auto) 8.2 10 ^3/uL (1.6-8.6); Neutrophils % (auto) 87.3 % (37.0-80.0); Nucleated Red Blood Cells % 0.1 %; Red Blood Cells 3.86 10^6/uL (4.0-5.20); White Blood Cell 9.4 10^3/uL (4.4-10.8)
[2021-12-31] MEDS ORDERED: ALBUTEROL SULF 2.5 MG/0.5ML(0.5%) NEB SOLN HHN ONE (07:15)
[2021-12-31] MEDS ORDERED: cefTRIAXone 1GM/50ML D5W 50 ML IV ONE (07:15)
[2021-12-31] MEDS ORDERED: IPRATROPIUM BROM 0.5 MG/2.5ML INH SOL NEB ONE (07:15)
[2021-12-31 07:18] LABS: Albumin 3.5 g/dL (3.4-5.0); Calcium 8.4 mg/dL (8.5-10.1); Potassium 4.2 mmol/L (3.5-5.1)
[2021-12-31 07:23] LABS: Bilirubin, Total 0.2 mg/dL (0.2-1.0); Total Protein 6.7 g/dL (6.4-8.2)
[2021-12-31] MEDS ORDERED: FUROSEMIDE 40 MG/4 ML VIAL IV ONE (07:45)
[2021-12-31] MEDS ORDERED: MORPHINE SULFATE INJECTION 2 MG/ML SYRG IV PRN (10:15)
[2021-12-31] MEDS ORDERED: ACETAMINOPHEN 325 MG TAB PO PRN (10:15)
[2021-12-31] MEDS: AZITHROMYCIN 500MG/ 250ML 250 ML IV SCH (10:15)
[2021-12-31] MEDS: BUDESONIDE (INHALATION) 0.5 MG/2 ML NEB NEB SCH ×2 (10:15→22:15)
[2021-12-31] MEDS ORDERED: NITROGLYCERIN 0.4 MG SL TAB SL PRN (10:15)
[2021-12-31 10:29] VITALS: BP 114/81
[2021-12-31 11:30] VITALS: BP 129/69
[2021-12-31] MEDS ORDERED: hydrALAZINE HCL 20 MG/ML VL IV PRN (11:30)
[2021-12-31] MEDS ORDERED: ONDANSETRON HCL 4 MG/2 ML VIAL IV PRN (11:30)
[2021-12-31 11:58] LABS: Cholesterol 201 mg/dL (< 200); HDL Cholesterol 51 mg/dL (40-59); LDL Cholesterol 122 mg/dL (< 100); Triglycerides 176 mg/dL (< 150)
[2021-12-31] MEDS: PANTOPRAZOLE 40 MG/10 ML VIAL INJ IV SCH (12:07)
[2021-12-31 13:00] VITALS: BP 129/69
[2021-12-31] MEDS ORDERED: ASPI-543 PO (13:24)
[2021-12-31] MEDS ORDERED: FURO40TA4 PO (13:24)
[2021-12-31] MEDS ORDERED: ALB2.5IS NEB (13:24)
[2021-12-31] MEDS ORDERED: POTA10TA51 PO (13:24)
[2021-12-31] MEDS: HYDROcodone-ACET 10/325MG TAB PO PRN ×2 (13:24→21:38)
[2021-12-31] MEDS ORDERED: DOCU-96 PO (13:24)
[2021-12-31] MEDS ORDERED: HYDR-4072 PO (13:24)
[2021-12-31] MEDS ORDERED: MULT-1018 PO (13:27)
[2021-12-31] MEDS ORDERED: LACTCAP35 OR (13:27)
[2021-12-31] MEDS ORDERED: ALBUTEROL SULF HFA 90MCG INH 200DOSE IN SCH (15:30)
[2021-12-31] MEDS: ALBUTEROL SULF 2.5 MG/0.5ML(0.5%) NEB SOLN NEB PRN ×2 (16:45→22:15)
[2021-12-31 17:00] VITALS: BP 145/88
[2021-12-31] MEDS ORDERED: ALPRAZolam 0.5 MG TAB PO PRN (17:15)
[2021-12-31] MEDS ORDERED: PROMETHAZINE W/CODEINE 5 ML ORAL SYRUP PO PRN (17:15)
[2021-12-31] MEDS: ALBUTEROL SULF 2.5 MG/0.5ML(0.5%) NEB SOLN NEB SCH (18:00)
[2021-12-31] MEDS: BENAZEPRIL HCL 10 MG TAB PO SCH (21:36)
[2021-12-31] MEDS: POTASSIUM CHL 20 Meq TABLET PO SCH (21:37)
[2021-12-31] MEDS: CARVEDILOL 12.5 MG TAB PO SCH (21:37)
[2021-12-31 22:00] VITALS: BP 151/87
[2021-12-31] MEDS ORDERED: HYDROcodone-ACET 10/325MG TAB PO SCH (22:00)
[2022-01-01] MEDS: ALBUTEROL SULF 2.5 MG/0.5ML(0.5%) NEB SOLN NEB SCH ×5 (01:35→22:07)
[2022-01-01] MEDS: ALBUTEROL SULF 2.5 MG/0.5ML(0.5%) NEB SOLN NEB PRN ×3 (03:32→15:37)
[2022-01-01 05:00] VITALS: BP 124/77
[2022-01-01] MEDS: HYDROcodone-ACET 10/325MG TAB PO PRN ×3 (05:39→21:30)
[2022-01-01 06:22] LABS: Basophils # (auto) 0 10 ^3/uL (0-0.2); Basophils % (auto) 0.1 % (0.0-2.0); Eosinophils # (auto) 0 10 ^3/uL (0-0.8); Eosinophils % (auto) 0.5 % (0.0-7.0); Hematocrit 35.1 % (36.0-46.0); Hemoglobin 12.1 g/dL (12.2-16.2); Lymphocytes # (auto) 0.7 10 ^3/uL (0.4-5.4); Lymphocytes % (auto) 12.3 % (10.0-50.0); Mean Corpuscular Hemoglobin 32.2 pg (28.0-32.0); Mean Corpuscular Hgb Conc. 34.4 g/dL (32.0-36.0); Mean Corpuscular Volume 93.4 fL (80.0-100.0); Monocytes # (auto) 0.7 10 ^3/uL (0-1.3); Neutrophils # (auto) 4.1 10 ^3/uL (1.6-8.6); Neutrophils % (auto) 74.1 % (37.0-80.0); Nucleated Red Blood Cells % 0.2 %; Red Blood Cells 3.76 10^6/uL (4.0-5.20); Red Cell Distribution Width 13.2 % (11.8-14.3); White Blood Cell 5.5 10^3/uL (4.4-10.8)
[2022-01-01] MEDS: BUDESONIDE (INHALATION) 0.5 MG/2 ML NEB NEB SCH ×2 (06:33→18:28)
[2022-01-01 06:34] LABS: Potassium 3.4 mmol/L (3.5-5.1)
[2022-01-01 06:48] LABS: Albumin 3.4 g/dL (3.4-5.0); BUN/Creatinine Ratio 29.5; Bilirubin, Total 0.4 mg/dL (0.2-1.0); Calcium 8.5 mg/dL (8.5-10.1); Total Protein 6.5 g/dL (6.4-8.2)
[2022-01-01 08:49] VITALS: BP 114/76
[2022-01-01] MEDS: POTASSIUM CHL 20 Meq TABLET PO SCH ×2 (09:26→22:00)
[2022-01-01] MEDS: predniSONE 20 MG TAB PO SCH (09:27)
[2022-01-01] MEDS: ASPirin-EC 81 mg tab PO SCH (09:27)
[2022-01-01] MEDS: ENOXAPARIN SOD 40 MG/0.4 ML SYRINGE SC SCH (09:29)
[2022-01-01] MEDS: MULTIPLE VITAMIN TAB PO SCH (09:29)
[2022-01-01] MEDS: PANTOPRAZOLE 40 MG/10 ML VIAL INJ IV SCH (09:47)
[2022-01-01] MEDS: AZITHROMYCIN 500MG/ 250ML 250 ML IV SCH (09:47)
[2022-01-01] MEDS: CARVEDILOL 12.5 MG TAB PO SCH ×2 (09:48→22:00)
[2022-01-01] MEDS ORDERED: FUROSEMIDE 20 MG/2 ML VIAL IV SCH (10:00)
[2022-01-01] MEDS: FLUTICASONE FUROATE IN SCH (10:00)
[2022-01-01] MEDS ORDERED: FUROSEMIDE 40 MG TAB PO SCH (10:00)
[2022-01-01] MEDS: VILANTEROL IN SCH (10:00)
[2022-01-01] MEDS: BENAZEPRIL HCL 10 MG TAB PO SCH ×2 (10:00→22:00)
[2022-01-01 12:35] VITALS: BP 103/58
[2022-01-01 16:49] VITALS: BP 116/74
[2022-01-01] MEDS: DOCUSATE SOD 100 MG CAP PO PRN (22:49)
[2022-01-01 23:21] VITALS: BP 110/69
[2022-01-02] MEDS: ALBUTEROL SULF 2.5 MG/0.5ML(0.5%) NEB SOLN NEB SCH ×6 (01:32→22:29)
[2022-01-02] MEDS: ALBUTEROL SULF 2.5 MG/0.5ML(0.5%) NEB SOLN NEB PRN (04:38)
[2022-01-02 04:39] VITALS: BP 120/72
[2022-01-02] MEDS: HYDROcodone-ACET 10/325MG TAB PO PRN ×3 (06:02→21:59)
[2022-01-02] MEDS: BUDESONIDE (INHALATION) 0.5 MG/2 ML NEB NEB SCH ×2 (07:04→22:29)
[2022-01-02 09:00] VITALS: BP 128/73
[2022-01-02] MEDS: ASPirin-EC 81 mg tab PO SCH (09:38)
[2022-01-02] MEDS: CARVEDILOL 12.5 MG TAB PO SCH ×2 (09:38→21:59)
[2022-01-02] MEDS: predniSONE 20 MG TAB PO SCH (09:39)
[2022-01-02] MEDS: MULTIPLE VITAMIN TAB PO SCH (09:39)
[2022-01-02] MEDS: BENAZEPRIL HCL 10 MG TAB PO SCH ×2 (09:41→22:00)
[2022-01-02] MEDS: FUROSEMIDE 40 MG/4 ML VIAL IV SCH (09:51)
[2022-01-02] MEDS: PANTOPRAZOLE 40 MG/10 ML VIAL INJ IV SCH (09:51)
[2022-01-02] MEDS: VILANTEROL IN SCH (09:52)
[2022-01-02] MEDS: FLUTICASONE FUROATE IN SCH (09:52)
[2022-01-02] MEDS: POTASSIUM CHL 20 Meq TABLET PO SCH ×2 (09:52→22:09)
[2022-01-02] MEDS: ENOXAPARIN SOD 40 MG/0.4 ML SYRINGE SC SCH (09:52)
[2022-01-02] MEDS: AZITHROMYCIN 500MG/ 250ML 250 ML IV SCH (09:54)
[2022-01-02] MEDS: DOCUSATE SOD 100 MG CAP PO PRN (12:50)
[2022-01-02 12:54] VITALS: BP 121/64
[2022-01-02 17:00] VITALS: BP 126/75
[2022-01-02 22:00] VITALS: BP 134/80
[2022-01-03] MEDS: ALBUTEROL SULF 2.5 MG/0.5ML(0.5%) NEB SOLN NEB SCH ×3 (01:09→10:39)
[2022-01-03 05:00] VITALS: BP 125/79
[2022-01-03] MEDS: HYDROcodone-ACET 10/325MG TAB PO PRN ×4 (05:53→15:26)
[2022-01-03 06:39] LABS: Basophils # (auto) 0 10 ^3/uL (0-0.2); Basophils % (auto) 0.2 % (0.0-2.0); Eosinophils # (auto) 0 10 ^3/uL (0-0.8); Eosinophils % (auto) 0.8 % (0.0-7.0); Hematocrit 36.7 % (36.0-46.0); Hemoglobin 12.6 g/dL (12.2-16.2); Lymphocytes # (auto) 1.2 10 ^3/uL (0.4-5.4); Lymphocytes % (auto) 24.7 % (10.0-50.0); Mean Corpuscular Hemoglobin 32.1 pg (28.0-32.0); Mean Corpuscular Hgb Conc. 34.4 g/dL (32.0-36.0); Mean Corpuscular Volume 93.4 fL (80.0-100.0); Monocytes # (auto) 0.6 10 ^3/uL (0-1.3); Neutrophils # (auto) 2.9 10 ^3/uL (1.6-8.6); Neutrophils % (auto) 61.3 % (37.0-80.0); Red Blood Cells 3.93 10^6/uL (4.0-5.20); Red Cell Distribution Width 13.2 % (11.8-14.3); White Blood Cell 4.7 10^3/uL (4.4-10.8)
[2022-01-03 06:55] LABS: Albumin 3.3 g/dL (3.4-5.0); BUN/Creatinine Ratio 33.7; Calcium 8.7 mg/dL (8.5-10.1); Magnesium 2.8 mg/dL (1.6-2.6); Potassium 4.1 mmol/L (3.5-5.1)
[2022-01-03 06:58] LABS: Bilirubin, Total 0.2 mg/dL (0.2-1.0); Total Protein 6.7 g/dL (6.4-8.2)
[2022-01-03 09:00] VITALS: BP 140/70
[2022-01-03] MEDS ORDERED: SODIUM CHLORIDE 0.9 % NEB SOLN 3ML NEB ONE ×2 (09:26→13:30)
[2022-01-03] MEDS: AZITHROMYCIN 500MG/ 250ML 250 ML IV SCH (11:08)
[2022-01-03] MEDS: FUROSEMIDE 40 MG/4 ML VIAL IV SCH (11:08)
[2022-01-03] MEDS: predniSONE 20 MG TAB PO SCH (11:08)
[2022-01-03] MEDS: PANTOPRAZOLE 40 MG/10 ML VIAL INJ IV SCH (11:08)
[2022-01-03] MEDS: CARVEDILOL 12.5 MG TAB PO SCH (11:09)
[2022-01-03] MEDS: POTASSIUM CHL 20 Meq TABLET PO SCH (11:09)
[2022-01-03] MEDS: ASPirin-EC 81 mg tab PO SCH (11:09)
[2022-01-03] MEDS: MULTIPLE VITAMIN TAB PO SCH (11:10)
[2022-01-03] MEDS: BENAZEPRIL HCL 10 MG TAB PO SCH (11:10)
[2022-01-03] MEDS: ENOXAPARIN SOD 40 MG/0.4 ML SYRINGE SC SCH (11:11)
[2022-01-03] MEDS ORDERED: LACTCAP35 OR (11:40)
[2022-01-03] MEDS ORDERED: ALB2.5IS NEB (11:40)
[2022-01-03] MEDS ORDERED: ALBU108A5 IN (11:40)
[2022-01-03] MEDS ORDERED: BENA20TA14 PO (11:40)
[2022-01-03] MEDS ORDERED: ALBUTEROL SULF 2.5 MG/0.5ML(0.5%) NEB SOLN NEB PRN (13:30)
[2022-01-03 13:32] VITALS: BP 121/75
[2022-01-03] MEDS ORDERED: PRED20TA2 PO (14:13)
[2022-01-03] MEDS ORDERED: DOXY-286 PO (14:29)
[2022-01-03 14:33] VITALS: BP 121/75
== END 2022-01-03 17:35 | disposition home health service (06) | DRG 139 ==
LOC: EDUNIT# 06:17 → EDBD 06:17 → ER 06:17 → TELE 10:13 → TELE-EAST 12:20
PROVIDERS: ADMIT Nurse Practitioner; ATTEND Nurse Practitioner
DX: J18.9 Pneumonia, unspecified organism (principal); J96.21 Acute and chronic respiratory failure with hypoxia; I50.23 Acute on chronic systolic (congestive) heart failure; I11.0 Hypertensive heart disease with heart failure; J44.0 Chronic obstructive pulmonary disease with (acute) lower respiratory infection; E66.9 Obesity, unspecified; J44.1 Chronic obstructive pulmonary disease with (acute) exacerbation; Z68.37 Body mass index [BMI] 37.0-37.9, adult; M19.90 Unspecified osteoarthritis, unspecified site; F17.210 Nicotine dependence, cigarettes, uncomplicated; I25.110 Atherosclerotic heart disease of native coronary artery with unstable angina pectoris; Z20.822 Contact with and (suspected) exposure to COVID-19; Z82.49 Family history of ischemic heart disease and other diseases of the circulatory system; Z87.59 Personal history of other complications of pregnancy, childbirth and the puerperium; Z79.899 Other long term (current) drug therapy; Z90.49 Acquired absence of other specified parts of digestive tract
CPT/HCPCS: 36415; 71045; 80053; 80061; 83735; 83880; 84484; 85025; 93005; 93306; 94640; 96365; 96375; C9113; G0378; J0696

== ENCOUNTER 2022-01-17 17:38 | Emergency (ER) | payer MEDICAID ==
[~2022-01-17] VITALS: Ht 165.1 cm; Wt 95.3 kg
[~2022-01-17 17:38] MED LIST changes: +ALB2.5IS NEB; +ASPI-543 PO; -DOCU-94 PO; +DOCU-96 PO; +DOXY-286 PO; -FURO1TAB31 PO; +FURO40TA4 PO; +HYDR-4072 PO; -HYDR-4833 PO; +LACTCAP35 OR; +MULT-1018 PO
[2022-01-17 20:21] VITALS: BP 148/71
[2022-01-17] MEDS ORDERED: HYDROcodone-ACET 5/325MG TAB PO ONE (21:45)
== END 2022-01-17 21:47 | disposition home or self-care (01) ==
LOC: ER 17:38
DX: S90.02XA Contusion of left ankle, initial encounter (principal); I11.0 Hypertensive heart disease with heart failure; I50.9 Heart failure, unspecified; J44.9 Chronic obstructive pulmonary disease, unspecified; F17.210 Nicotine dependence, cigarettes, uncomplicated; X58.XXXA Exposure to other specified factors, initial encounter; Y93.89 Activity, other specified; Y92.89 Other specified places as the place of occurrence of the external cause; Y99.8 Other external cause status
CPT/HCPCS: 73610

== ENCOUNTER 2023-01-22 13:39 | Inpatient (IN) | payer OTHER, MEDICAID ==
[~2023-01-22] VITALS: Ht 165.1 cm; Wt 90.3 kg
[2023-01-22 14:04] LABS: Basophils # (auto) 0 10 ^3/uL (0-0.2); Basophils % (auto) 0.7 % (0.0-2.0); Eosinophils # (auto) 0.3 10 ^3/uL (0-0.8); Eosinophils % (auto) 3.6 % (0.0-7.0); Hematocrit 37.4 % (36.0-46.0); Hemoglobin 12.8 g/dL (12.2-16.2); Lymphocytes # (auto) 1.4 10 ^3/uL (0.4-5.4); Lymphocytes % (auto) 18.9 % (10.0-50.0); Mean Corpuscular Hemoglobin 31.1 pg (28.0-32.0); Mean Corpuscular Hgb Conc. 34.3 g/dL (32.0-36.0); Mean Corpuscular Volume 90.6 fL (80.0-100.0); Monocytes # (auto) 0.6 10 ^3/uL (0-1.3); Monocytes % (auto) 8.6 % (0.0-12.0); Neutrophils # (auto) 5.1 10 ^3/uL (1.6-8.6); Neutrophils % (auto) 68.2 % (37.0-80.0); Red Blood Cells 4.12 10^6/uL (4.0-5.20); Red Cell Distribution Width 12.9 % (11.8-14.3); White Blood Cell 7.5 10^3/uL (4.4-10.8)
[2023-01-22 14:23] LABS: Albumin 3.7 g/dL (3.4-5.0); Calcium 8.9 mg/dL (8.5-10.1); Potassium 4.6 mmol/L (3.5-5.1)
[2023-01-22 14:28] LABS: BUN/Creatinine Ratio 31.3 (10.0-20.0); Bilirubin, Total 0.2 mg/dL (0.2-1.0); Total Protein 6.6 g/dL (6.4-8.2)
[2023-01-22] MEDS ORDERED: methylPREDNISolone SOD SUCC 125 MG/2 ML VL IV ONE (17:30)
[2023-01-22] MEDS ORDERED: FUROSEMIDE 40 MG/4 ML VIAL IV ONE (17:30)
[2023-01-22] MEDS ORDERED: ALBUTEROL SULF 2.5 MG/0.5ML(0.5%) NEB SOLN NEB ONE (17:30)
[2023-01-22] MEDS ORDERED: IPRATROPIUM BROM 0.5 MG/2.5ML INH SOL NEB ONE (17:30)
[2023-01-22] MEDS ORDERED: hydrALAZINE HCL 20 MG/ML VL IV PRN (18:30)
[2023-01-22] MEDS ORDERED: ACETAMINOPHEN 325 MG TAB PO PRN (18:30)
[2023-01-22] MEDS ORDERED: PANTOPRAZOLE 40 MG/10 ML VIAL INJ IV ONE (18:30)
[2023-01-22] MEDS ORDERED: ALBUTEROL SULF 2.5 MG/0.5ML(0.5%) NEB SOLN NEB PRN (18:30)
[2023-01-22 18:36] VITALS: BP 143/71
[2023-01-22 18:57] LABS: Cholesterol 210 mg/dL (< 200)
[2023-01-22 18:59] LABS: HDL Cholesterol 43 mg/dL (40-59); LDL Cholesterol 143 mg/dL (< 100); Triglycerides 270 mg/dL (< 150)
[2023-01-22] MEDS: methylPREDNISolone SOD SUCC 125 MG/2 ML VL IV SCH (21:54)
[2023-01-22] MEDS: CARVEDILOL 12.5 MG TAB PO SCH (21:55)
[2023-01-22] MEDS: BENAZEPRIL HCL 10 MG TAB PO SCH (21:55)
[2023-01-22] MEDS: POTASSIUM CHL 20 Meq TABLET PO SCH (21:56)
[2023-01-22] MEDS: IPRATROPIUM BROM 0.5 MG/2.5ML INH SOL NEB SCH (22:00)
[2023-01-22] MEDS: ALBUTEROL SULF 2.5 MG/0.5ML(0.5%) NEB SOLN NEB SCH (22:00)
[2023-01-22] MEDS: HYDROcodone-ACET 5/325MG TAB PO PRN (22:17)
[2023-01-23] MEDS: IPRATROPIUM BROM 0.5 MG/2.5ML INH SOL NEB SCH ×6 (00:27→21:53)
[2023-01-23] MEDS: ALBUTEROL SULF 2.5 MG/0.5ML(0.5%) NEB SOLN NEB SCH ×6 (00:27→21:53)
[2023-01-23] MEDS: HYDROcodone-ACET 5/325MG TAB PO PRN ×4 (04:30→20:54)
[2023-01-23 06:29] LABS: Basophils # (auto) 0.1 10 ^3/uL (0-0.2); Basophils % (auto) 0.7 % (0.0-2.0); Eosinophils # (auto) 0 10 ^3/uL (0-0.8); Eosinophils % (auto) 0.3 % (0.0-7.0); Hematocrit 38.4 % (36.0-46.0); Hemoglobin 13.6 g/dL (12.2-16.2); Lymphocytes # (auto) 0.6 10 ^3/uL (0.4-5.4); Mean Corpuscular Hemoglobin 31.4 pg (28.0-32.0); Mean Corpuscular Hgb Conc. 35.5 g/dL (32.0-36.0); Mean Corpuscular Volume 88.5 fL (80.0-100.0); Monocytes # (auto) 0.2 10 ^3/uL (0-1.3); Monocytes % (auto) 1.7 % (0.0-12.0); Neutrophils # (auto) 9.2 10 ^3/uL (1.6-8.6); Neutrophils % (auto) 91.3 % (37.0-80.0); Nucleated Red Blood Cells % 0.2 %; Red Blood Cells 4.34 10^6/uL (4.0-5.20)
[2023-01-23 06:42] LABS: Potassium 4.6 mmol/L (3.5-5.1)
[2023-01-23 06:55] LABS: Albumin 3.8 g/dL (3.4-5.0); BUN/Creatinine Ratio 24.4 (10.0-20.0); Bilirubin, Total 0.4 mg/dL (0.2-1.0); Calcium 9.2 mg/dL (8.5-10.1); Total Protein 7.4 g/dL (6.4-8.2)
[2023-01-23] MEDS: LACTOBACILLUS PO SCH (10:00)
[2023-01-23] MEDS: methylPREDNISolone SOD SUCC 125 MG/2 ML VL IV SCH ×2 (10:23→23:21)
[2023-01-23] MEDS: FUROSEMIDE 40 MG/4 ML VIAL IV SCH (10:24)
[2023-01-23] MEDS: POTASSIUM CHL 20 Meq TABLET PO SCH ×2 (10:25→23:24)
[2023-01-23] MEDS: ASPirin-EC 81 mg tab PO SCH (10:33)
[2023-01-23] MEDS: CARVEDILOL 12.5 MG TAB PO SCH ×2 (10:34→23:23)
[2023-01-23] MEDS: MULTIPLE VITAMIN TAB PO SCH (10:35)
[2023-01-23] MEDS: PANTOPRAZOLE 40 MG/10 ML VIAL INJ IV SCH (10:35)
[2023-01-23] MEDS: ENOXAPARIN SOD 40 MG/0.4 ML SYRINGE SC SCH (10:36)
[2023-01-23] MEDS: BENAZEPRIL HCL 10 MG TAB PO SCH ×2 (11:30→23:23)
[2023-01-23] MEDS ORDERED: BISACODYL 5 MG EC TAB PO ONE (13:00)
[2023-01-23] MEDS: BISACODYL 5 MG EC TAB PO SCH (23:24)
[2023-01-24] MEDS: HYDROcodone-ACET 5/325MG TAB PO PRN ×6 (01:01→23:19)
[2023-01-24] MEDS: IPRATROPIUM BROM 0.5 MG/2.5ML INH SOL NEB SCH ×6 (01:44→21:22)
[2023-01-24] MEDS: ALBUTEROL SULF 2.5 MG/0.5ML(0.5%) NEB SOLN NEB SCH ×6 (01:44→21:22)
[2023-01-24 05:00] VITALS: BP 114/58
[2023-01-24 06:10] LABS: Basophils # (auto) 0 10 ^3/uL (0-0.2); Eosinophils # (auto) 0 10 ^3/uL (0-0.8); Hemoglobin 12.3 g/dL (12.2-16.2); Lymphocytes # (auto) 0.8 10 ^3/uL (0.4-5.4); Lymphocytes % (auto) 5.5 % (10.0-50.0); Mean Corpuscular Hemoglobin 31.1 pg (28.0-32.0); Mean Corpuscular Hgb Conc. 33.3 g/dL (32.0-36.0); Mean Corpuscular Volume 93.4 fL (80.0-100.0); Monocytes # (auto) 0.5 10 ^3/uL (0-1.3); Monocytes % (auto) 3.4 % (0.0-12.0); Neutrophils # (auto) 14.1 10 ^3/uL (1.6-8.6); Neutrophils % (auto) 91.1 % (37.0-80.0); Red Blood Cells 3.96 10^6/uL (4.0-5.20); Red Cell Distribution Width 13.2 % (11.8-14.3); White Blood Cell 15.5 10^3/uL (4.4-10.8)
[2023-01-24 06:24] LABS: BUN/Creatinine Ratio 28.7 (10.0-20.0); Calcium 9.3 mg/dL (8.5-10.1); Potassium 4.7 mmol/L (3.5-5.1)
[2023-01-24 09:00] VITALS: BP 129/73
[2023-01-24] MEDS ORDERED: GLYCERIN ADULT RECTAL SUPP PR ONE (09:30)
[2023-01-24] MEDS: LACTOBACILLUS PO SCH (10:00)
[2023-01-24] MEDS: PANTOPRAZOLE 40 MG/10 ML VIAL INJ IV SCH (10:23)
[2023-01-24] MEDS: ENOXAPARIN SOD 40 MG/0.4 ML SYRINGE SC SCH (10:23)
[2023-01-24] MEDS: FUROSEMIDE 40 MG/4 ML VIAL IV SCH (10:24)
[2023-01-24] MEDS: methylPREDNISolone SOD SUCC 125 MG/2 ML VL IV SCH ×2 (10:24→22:31)
[2023-01-24] MEDS: ASPirin-EC 81 mg tab PO SCH (10:24)
[2023-01-24] MEDS: CARVEDILOL 12.5 MG TAB PO SCH ×2 (10:25→22:24)
[2023-01-24] MEDS: POTASSIUM CHL 20 Meq TABLET PO SCH ×2 (10:25→22:31)
[2023-01-24] MEDS: BENAZEPRIL HCL 10 MG TAB PO SCH ×2 (10:26→22:25)
[2023-01-24] MEDS: MULTIPLE VITAMIN TAB PO SCH (10:26)
[2023-01-24] MEDS: BISACODYL 5 MG EC TAB PO SCH ×2 (10:26→22:24)
[2023-01-24 13:00] VITALS: BP 120/58
[2023-01-24 17:00] VITALS: BP 120/70
[2023-01-24 20:00] VITALS: BP 109/67
[2023-01-24 22:00] VITALS: BP 109/67
[2023-01-25] VITALS (7 sets, daily range): BP systolic 108–141; BP diastolic 63–85
[2023-01-25] MEDS: IPRATROPIUM BROM 0.5 MG/2.5ML INH SOL NEB SCH ×6 (01:47→22:06)
[2023-01-25] MEDS: ALBUTEROL SULF 2.5 MG/0.5ML(0.5%) NEB SOLN NEB SCH ×6 (01:47→22:06)
[2023-01-25] MEDS: HYDROcodone-ACET 5/325MG TAB PO PRN ×5 (03:20→21:53)
[2023-01-25 05:20] LABS: Basophils # (auto) 0 10 ^3/uL (0-0.2); Basophils % (auto) 0.1 % (0.0-2.0); Eosinophils # (auto) 0 10 ^3/uL (0-0.8); Eosinophils % (auto) 0.1 % (0.0-7.0); Hematocrit 36.8 % (36.0-46.0); Hemoglobin 12.6 g/dL (12.2-16.2); Lymphocytes # (auto) 0.8 10 ^3/uL (0.4-5.4); Lymphocytes % (auto) 7.3 % (10.0-50.0); Mean Corpuscular Hemoglobin 31.8 pg (28.0-32.0); Mean Corpuscular Hgb Conc. 34.4 g/dL (32.0-36.0); Mean Corpuscular Volume 92.4 fL (80.0-100.0); Monocytes # (auto) 0.3 10 ^3/uL (0-1.3); Monocytes % (auto) 2.7 % (0.0-12.0); Neutrophils # (auto) 9.3 10 ^3/uL (1.6-8.6); Neutrophils % (auto) 89.8 % (37.0-80.0); Red Blood Cells 3.98 10^6/uL (4.0-5.20); Red Cell Distribution Width 13.4 % (11.8-14.3); White Blood Cell 10.3 10^3/uL (4.4-10.8)
[2023-01-25 05:37] LABS: BUN/Creatinine Ratio 34.8 (10.0-20.0); Calcium 8.9 mg/dL (8.5-10.1)
[2023-01-25] MEDS: methylPREDNISolone SOD SUCC 125 MG/2 ML VL IV SCH ×2 (09:34→21:52)
[2023-01-25] MEDS: ASPirin-EC 81 mg tab PO SCH (09:35)
[2023-01-25] MEDS: PANTOPRAZOLE 40 MG/10 ML VIAL INJ IV SCH (09:35)
[2023-01-25] MEDS: ENOXAPARIN SOD 40 MG/0.4 ML SYRINGE SC SCH (09:35)
[2023-01-25] MEDS: FUROSEMIDE 40 MG/4 ML VIAL IV SCH (09:35)
[2023-01-25] MEDS: BENAZEPRIL HCL 10 MG TAB PO SCH ×2 (09:36→21:54)
[2023-01-25] MEDS: CARVEDILOL 12.5 MG TAB PO SCH ×2 (09:36→21:56)
[2023-01-25] MEDS: BISACODYL 5 MG EC TAB PO SCH ×2 (09:37→21:56)
[2023-01-25] MEDS: MULTIPLE VITAMIN TAB PO SCH (09:37)
[2023-01-25] MEDS: POTASSIUM CHL 20 Meq TABLET PO SCH ×2 (09:37→21:52)
[2023-01-25] MEDS: LACTOBACILLUS PO SCH (09:40)
[2023-01-25] MEDS ORDERED: GLYCERIN ADULT RECTAL SUPP PR ONE (12:15)
[2023-01-25] MEDS ORDERED: MULT-1018 PO (12:50)
[2023-01-25] MEDS ORDERED: PRED20TA2 PO (12:50)
[2023-01-25] MEDS ORDERED: LACTCAP35 OR (12:50)
[2023-01-26] VITALS (7 sets, daily range): BP systolic 108–131; BP diastolic 63–78
[2023-01-26] MEDS: HYDROcodone-ACET 5/325MG TAB PO PRN ×4 (01:48→18:08)
[2023-01-26] MEDS: ALBUTEROL SULF 2.5 MG/0.5ML(0.5%) NEB SOLN NEB SCH ×5 (02:03→19:08)
[2023-01-26] MEDS: IPRATROPIUM BROM 0.5 MG/2.5ML INH SOL NEB SCH ×5 (02:03→19:08)
[2023-01-26] MEDS: POTASSIUM CHL 20 Meq TABLET PO SCH (10:00)
[2023-01-26] MEDS: ENOXAPARIN SOD 40 MG/0.4 ML SYRINGE SC SCH ×2 (10:00→10:15)
[2023-01-26] MEDS: FUROSEMIDE 40 MG/4 ML VIAL IV SCH (10:08)
[2023-01-26] MEDS: methylPREDNISolone SOD SUCC 125 MG/2 ML VL IV SCH (10:09)
[2023-01-26] MEDS: BENAZEPRIL HCL 10 MG TAB PO SCH (10:11)
[2023-01-26] MEDS: MULTIPLE VITAMIN TAB PO SCH (10:11)
[2023-01-26] MEDS: CARVEDILOL 12.5 MG TAB PO SCH (10:13)
[2023-01-26] MEDS: ASPirin-EC 81 mg tab PO SCH (10:14)
[2023-01-26] MEDS: BISACODYL 5 MG EC TAB PO SCH (10:14)
[2023-01-26] MEDS: LACTOBACILLUS PO SCH (10:19)
== END 2023-01-26 22:30 | disposition home health service (06) | DRG 291 ==
LOC: EDBD 13:39 → ER 13:39 → OVERFLOW 18:30 → CENTRAL 01-23 21:20
PROVIDERS: ADMIT Nurse Practitioner Family; ATTEND Internal Medicine Pulmonary Disease
DX: I11.0 Hypertensive heart disease with heart failure (principal); I50.23 Acute on chronic systolic (congestive) heart failure; J96.21 Acute and chronic respiratory failure with hypoxia; J44.1 Chronic obstructive pulmonary disease with (acute) exacerbation; E66.01 Morbid (severe) obesity due to excess calories; I25.10 Atherosclerotic heart disease of native coronary artery without angina pectoris; K59.00 Constipation, unspecified; E78.5 Hyperlipidemia, unspecified; Z20.822 Contact with and (suspected) exposure to COVID-19; F17.210 Nicotine dependence, cigarettes, uncomplicated; Z99.81 Dependence on supplemental oxygen; Z68.33 Body mass index [BMI] 33.0-33.9, adult; Z82.49 Family history of ischemic heart disease and other diseases of the circulatory system; Z90.49 Acquired absence of other specified parts of digestive tract
CPT/HCPCS: 36415; 36600; 71045; 80048; 80053; 80061; 82805; 83036; 83880; 84443; 84484; 85025; 85379; 87426; 93005; 93306; 94640; 99291; C9113; G0378

== ENCOUNTER 2023-01-31 15:14 | Inpatient (IN) | payer OTHER, MEDICAID ==
[~2023-01-31] VITALS: Ht 165.1 cm; Wt 102.4 kg
[2023-01-31 15:48] LABS: Basophils # (auto) 0.1 10 ^3/uL (0-0.2); Basophils % (auto) 0.4 % (0.0-2.0); Lymphocytes # (auto) 1.7 10 ^3/uL (0.4-5.4); Mean Corpuscular Hemoglobin 30.4 pg (28.0-32.0); Mean Corpuscular Hgb Conc. 32.8 g/dL (32.0-36.0); Neutrophils # (auto) 11.8 10 ^3/uL (1.6-8.6); Red Cell Distribution Width 13.4 % (11.8-14.3); White Blood Cell 15.3 10^3/uL (4.4-10.8)
[2023-01-31 15:55] LABS: Eosinophils # (auto) 0.1 10 ^3/uL (0-0.8); Hematocrit 38.8 % (36.0-46.0); Hemoglobin 12.7 g/dL (12.2-16.2); Lymphocytes % (auto) 11.1 % (10.0-50.0); Mean Corpuscular Volume 92.9 fL (80.0-100.0); Monocytes # (auto) 1.6 10 ^3/uL (0-1.3); Monocytes % (auto) 10.2 % (0.0-12.0); Neutrophils % (auto) 77.3 % (37.0-80.0); Red Blood Cells 4.17 10^6/uL (4.0-5.20)
[2023-01-31 16:07] LABS: Alanine Aminotransferase 21 U/L (13-56); Albumin 3.1 g/dL (3.4-5.0); Anion Gap 4 (5-15); Blood Urea Nitrogen 22 mg/dL (7-18); Calcium 8.5 mg/dL (8.5-10.1); Carbon Dioxide 36 mmol/L (21-32); Chloride 101 mmol/L (98-107); Glucose 90 mg/dL (74-106); Potassium 4.2 mmol/L (3.5-5.1); Sodium 141 mmol/L (136-145)
[2023-01-31 16:10] LABS: Alkaline Phosphatase 63 U/L (45-117); Aspartate Aminotransferase < 3 U/L (15-37); BUN/Creatinine Ratio 36.1 (10.0-20.0); Bilirubin, Total 0.3 mg/dL (0.2-1.0); GFR African American 127 mL/min; GFR Non-African American 105 mL/min; Total Protein 6.2 g/dL (6.4-8.2)
[2023-01-31] MEDS ORDERED: methylPREDNISolone SOD SUCC 125 MG/2 ML VL IV ONE (18:15)
[2023-01-31] MEDS ORDERED: ALBUTEROL SULF 2.5 MG/0.5ML(0.5%) NEB SOLN NEB ONE ×2 (18:15→22:15)
[2023-01-31] MEDS ORDERED: IPRATROPIUM BROM 0.5 MG/2.5ML INH SOL NEB ONE ×2 (18:15→22:15)
[2023-01-31] MEDS ORDERED: cefTRIAXone 1GM/50ML D5W 50 ML IV ONE (19:45)
[2023-01-31] MEDS ORDERED: AZITHROMYCIN 500MG/ 250ML 250 ML IV ONE (19:45)
[2023-01-31] MEDS ORDERED: HYDROcodone-ACET 5/325MG TAB PO ONE (20:45)
[2023-01-31] MEDS ORDERED: ONDANSETRON HCL 4 MG/2 ML VIAL IV PRN (23:00)
[2023-01-31] MEDS ORDERED: ALBUTEROL SULF 2.5 MG/0.5ML(0.5%) NEB SOLN NEB PRN (23:00)
[2023-01-31] MEDS ORDERED: ACETAMINOPHEN 325 MG TAB PO PRN (23:00)
[2023-01-31] MEDS ORDERED: IPRATROPIUM BROM 0.5 MG/2.5ML INH SOL NEB PRN (23:00)
[2023-02-01] MEDS ORDERED: MORPHINE SULFATE INJ 2 MG/ml SYRG IV PRN
[2023-02-01] MEDS ORDERED: NITROGLYCERIN 0.4 MG SL TAB SL PRN
[2023-02-01 00:18] VITALS: BP 130/68
[2023-02-01] MEDS: HYDROcodone-ACET 5/325MG TAB PO PRN ×4 (02:20→21:16)
[2023-02-01 04:06] LABS: Basophils # (auto) 0 10 ^3/uL (0-0.2); Eosinophils # (auto) 0 10 ^3/uL (0-0.8); Hematocrit 36.8 % (36.0-46.0); Hemoglobin 12.2 g/dL (12.2-16.2); Lymphocytes # (auto) 0.5 10 ^3/uL (0.4-5.4); Lymphocytes % (auto) 3.2 % (10.0-50.0); Mean Corpuscular Hgb Conc. 33.1 g/dL (32.0-36.0); Mean Corpuscular Volume 93.8 fL (80.0-100.0); Monocytes # (auto) 0.5 10 ^3/uL (0-1.3); Monocytes % (auto) 3.4 % (0.0-12.0); Neutrophils # (auto) 14.9 10 ^3/uL (1.6-8.6); Neutrophils % (auto) 93.4 % (37.0-80.0); Nucleated Red Blood Cells % 0.1 %; Red Blood Cells 3.92 10^6/uL (4.0-5.20); Red Cell Distribution Width 13.4 % (11.8-14.3)
[2023-02-01 04:22] LABS: Urine Bacteria FEW /hpf (None Seen); Urine Blood Negative /uL (Negative); Urine Specific Gravity 1.019 (1.001-1.035); Urine WBC 7 /hpf (0 - 5)
[2023-02-01 04:22] LABS: Calcium 8.8 mg/dL (8.5-10.1); Potassium 4.4 mmol/L (3.5-5.1)
[2023-02-01 04:25] LABS: BUN/Creatinine Ratio 31.2 (10.0-20.0); Bilirubin, Total 0.3 mg/dL (0.2-1.0); Total Protein 6.6 g/dL (6.4-8.2)
[2023-02-01] MEDS: ALBUTEROL SULF 2.5 MG/0.5ML(0.5%) NEB SOLN NEB SCH ×5 (05:59→21:58)
[2023-02-01] MEDS: IPRATROPIUM BROM 0.5 MG/2.5ML INH SOL NEB SCH ×5 (06:00→21:58)
[2023-02-01] MEDS: methylPREDNISolone SOD SUCC 125 MG/2 ML VL IV SCH ×3 (06:08→22:24)
[2023-02-01] MEDS: FAMOTIDINE (10MG/ML) 2ML VL IV SCH ×2 (10:09→22:24)
[2023-02-01] MEDS: FUROSEMIDE 40 MG/4 ML VIAL IV SCH (10:09)
[2023-02-01] MEDS: CARVEDILOL 12.5 MG TAB PO SCH ×2 (10:10→22:25)
[2023-02-01] MEDS: ASPirin 81 mg TAB PO SCH (10:10)
[2023-02-01] MEDS: cefTRIAXone 1GM/50ML D5W 50 ML IV SCH (21:11)
[2023-02-01] MEDS: AZITHROMYCIN 500MG/ 250ML 250 ML IV SCH (22:24)
[2023-02-01] MEDS: ATORVASTATIN 20 MG TAB PO SCH (22:24)
[2023-02-02] MEDS: IPRATROPIUM BROM 0.5 MG/2.5ML INH SOL NEB SCH ×6 (02:27→22:13)
[2023-02-02] MEDS: ALBUTEROL SULF 2.5 MG/0.5ML(0.5%) NEB SOLN NEB SCH ×6 (02:27→22:13)
[2023-02-02] MEDS: HYDROcodone-ACET 5/325MG TAB PO PRN ×5 (03:31→20:51)
[2023-02-02 05:00] VITALS: BP 136/73
[2023-02-02] MEDS: methylPREDNISolone SOD SUCC 125 MG/2 ML VL IV SCH ×3 (06:00→21:48)
[2023-02-02] MEDS: FAMOTIDINE (10MG/ML) 2ML VL IV SCH ×3 (08:20→21:57)
[2023-02-02] MEDS: ASPirin 81 mg TAB PO SCH (08:20)
[2023-02-02] MEDS: DOCUSATE SOD 100 MG CAP PO PRN ×2 (08:21→20:50)
[2023-02-02] MEDS: CARVEDILOL 12.5 MG TAB PO SCH ×2 (08:22→21:48)
[2023-02-02] MEDS: FUROSEMIDE 40 MG/4 ML VIAL IV SCH (08:23)
[2023-02-02 08:30] VITALS: BP 123/63
[2023-02-02 09:00] VITALS: BP 123/63
[2023-02-02 13:00] VITALS: BP 124/68
[2023-02-02 17:00] VITALS: BP 118/51
[2023-02-02] MEDS: cefTRIAXone 1GM/50ML D5W 50 ML IV SCH (20:50)
[2023-02-02] MEDS: AZITHROMYCIN 500MG/ 250ML 250 ML IV SCH (21:48)
[2023-02-02] MEDS: ATORVASTATIN 20 MG TAB PO SCH (21:57)
[2023-02-02 22:00] VITALS: BP 127/75
[2023-02-03] MEDS ORDERED: MELATONIN 5 MG TAB PO ONE (00:35)
[2023-02-03] MEDS: HYDROcodone-ACET 5/325MG TAB PO PRN ×6 (01:07→22:08)
[2023-02-03] MEDS: IPRATROPIUM BROM 0.5 MG/2.5ML INH SOL NEB SCH ×6 (03:00→23:48)
[2023-02-03] MEDS: ALBUTEROL SULF 2.5 MG/0.5ML(0.5%) NEB SOLN NEB SCH ×6 (03:00→23:48)
[2023-02-03 05:00] VITALS: BP 110/56
[2023-02-03] MEDS: methylPREDNISolone SOD SUCC 125 MG/2 ML VL IV SCH ×3 (05:41→22:08)
[2023-02-03] MEDS: DOCUSATE SOD 100 MG CAP PO PRN (09:26)
[2023-02-03] MEDS: ASPirin 81 mg TAB PO SCH (09:26)
[2023-02-03] MEDS: CARVEDILOL 12.5 MG TAB PO SCH ×2 (09:27→22:00)
[2023-02-03] MEDS: FUROSEMIDE 40 MG/4 ML VIAL IV SCH (09:27)
[2023-02-03] MEDS: FAMOTIDINE (10MG/ML) 2ML VL IV SCH ×2 (09:34→22:00)
[2023-02-03] MEDS ORDERED: FLEET ENEMA(ADULT) 135 ML PR ONE (11:00)
[2023-02-03 14:28] VITALS: BP 115/56
[2023-02-03 17:21] VITALS: BP 118/72
[2023-02-03] MEDS: cefTRIAXone 1GM/50ML D5W 50 ML IV SCH (20:50)
[2023-02-03 22:00] VITALS: BP 110/63
[2023-02-03] MEDS: BENAZEPRIL HCL 10 MG TAB PO SCH (22:00)
[2023-02-03] MEDS: ATORVASTATIN 20 MG TAB PO SCH (22:00)
[2023-02-03] MEDS: AZITHROMYCIN 500MG/ 250ML 250 ML IV SCH (22:08)
[2023-02-04] VITALS (7 sets, daily range): BP systolic 105–123; BP diastolic 49–92
[2023-02-04] MEDS: HYDROcodone-ACET 5/325MG TAB PO PRN ×6 (02:18→23:46)
[2023-02-04] MEDS: ALBUTEROL SULF 2.5 MG/0.5ML(0.5%) NEB SOLN NEB SCH ×6 (03:28→23:15)
[2023-02-04] MEDS: IPRATROPIUM BROM 0.5 MG/2.5ML INH SOL NEB SCH ×6 (03:28→23:16)
[2023-02-04] MEDS: methylPREDNISolone SOD SUCC 125 MG/2 ML VL IV SCH ×3 (06:18→22:05)
[2023-02-04] MEDS: DOCUSATE SOD 100 MG CAP PO PRN ×2 (06:19→22:20)
[2023-02-04] MEDS: POTASSIUM CHL 20 Meq TABLET PO SCH (09:48)
[2023-02-04] MEDS: ASPirin 81 mg TAB PO SCH (09:48)
[2023-02-04] MEDS: CARVEDILOL 12.5 MG TAB PO SCH ×2 (09:49→22:00)
[2023-02-04] MEDS: BENAZEPRIL HCL 10 MG TAB PO SCH ×2 (09:49→22:00)
[2023-02-04] MEDS: FUROSEMIDE 40 MG/4 ML VIAL IV SCH (09:49)
[2023-02-04] MEDS ORDERED: IPRA0.00 IN (11:41)
[2023-02-04] MEDS ORDERED: PRED20TA2 PO (11:42)
[2023-02-04] MEDS ORDERED: AZIT500T66 PO (11:52)
[2023-02-04] MEDS: cefTRIAXone 1GM/50ML D5W 50 ML IV SCH (20:42)
[2023-02-04] MEDS: ATORVASTATIN 20 MG TAB PO SCH (22:00)
[2023-02-04] MEDS: AZITHROMYCIN 500MG/ 250ML 250 ML IV SCH (22:05)
[2023-02-05] MEDS: IPRATROPIUM BROM 0.5 MG/2.5ML INH SOL NEB SCH ×5 (02:46→17:50)
[2023-02-05] MEDS: ALBUTEROL SULF 2.5 MG/0.5ML(0.5%) NEB SOLN NEB SCH ×5 (02:46→17:50)
[2023-02-05 05:00] VITALS: BP 109/68
[2023-02-05] MEDS: HYDROcodone-ACET 5/325MG TAB PO PRN ×2 (05:20→13:44)
[2023-02-05] MEDS: methylPREDNISolone SOD SUCC 125 MG/2 ML VL IV SCH ×2 (05:26→14:00)
[2023-02-05] MEDS: DOCUSATE SOD 100 MG CAP PO PRN (05:36)
[2023-02-05] MEDS ORDERED: FLEET ENEMA(ADULT) 135 ML PR ONE (06:30)
[2023-02-05 09:00] VITALS: BP 141/72
[2023-02-05] MEDS: ASPirin 81 mg TAB PO SCH (09:36)
[2023-02-05] MEDS: POTASSIUM CHL 20 Meq TABLET PO SCH (09:36)
[2023-02-05] MEDS: CARVEDILOL 12.5 MG TAB PO SCH (09:37)
[2023-02-05] MEDS: BENAZEPRIL HCL 10 MG TAB PO SCH (09:38)
[2023-02-05] MEDS: FUROSEMIDE 40 MG/4 ML VIAL IV SCH (09:39)
[2023-02-05 13:00] VITALS: BP 98/48
[2023-02-05 16:52] VITALS: BP 107/54
[2023-02-05] MEDS ORDERED: AZITHROMYCIN 250 MG TAB PO SCH (21:00)
== END 2023-02-05 19:07 | disposition home or self-care (01) | DRG 871 ==
LOC: ER 15:14 → EDBD 15:14 → TELE 23:48 → TELE-WESTW 02-02 00:22
PROVIDERS: ADMIT Nurse Practitioner Family; ATTEND Family Medicine
DX: A41.9 Sepsis, unspecified organism (principal); I50.23 Acute on chronic systolic (congestive) heart failure; J96.21 Acute and chronic respiratory failure with hypoxia; J15.6 Pneumonia due to other Gram-negative bacteria; J44.1 Chronic obstructive pulmonary disease with (acute) exacerbation; J44.0 Chronic obstructive pulmonary disease with (acute) lower respiratory infection; I11.0 Hypertensive heart disease with heart failure; F17.210 Nicotine dependence, cigarettes, uncomplicated; I25.10 Atherosclerotic heart disease of native coronary artery without angina pectoris; E66.01 Morbid (severe) obesity due to excess calories; K59.00 Constipation, unspecified; Z20.822 Contact with and (suspected) exposure to COVID-19; E78.5 Hyperlipidemia, unspecified; M13.88 Other specified arthritis, other site; Z82.49 Family history of ischemic heart disease and other diseases of the circulatory system; Z99.81 Dependence on supplemental oxygen; Z79.899 Other long term (current) drug therapy; Z68.37 Body mass index [BMI] 37.0-37.9, adult
CPT/HCPCS: 36415; 71045; 80053; 81001; 83880; 84484; 85025; 87086; 93970; 94640; 96365; 96367; 96375; 99291; G0378; J0696; J3490